=== PATIENT | female | born 1975 | race Caucasian/White ===

== ENCOUNTER 2019-07-12 08:07 | Emergency (ER) | payer BC, MEDICAID ==
[2019-07-12] MEDS ORDERED: Sodium Chloride 0.9% 10 ML Syringe FLUSH PRN (08:44)
[2019-07-12] MEDS ORDERED: Iopamidol 755 Mg/ML 100 ML Bottle IVPUSH ONE (08:45)
[2019-07-12] MEDS ORDERED: Sodium Chloride 0.9% 1,000 ML IV ONE (08:53)
--- NOTE | 2019-07-12 09:08 | EDM.PDOC ---
ED HPI GENERAL MEDICAL PROBLEM - General Chief Complaint: Cardiovascular Problem Stated Complaint: hx PE, coughing blood Time Seen by Provider: 07/12/19 08:10 Source of Information: Reports: Patient, RN Notes Reviewed History Limitations: Reports: No Limitations - History of Present Illness INITIAL COMMENTS - FREE TEXT/NARRATIVE: She presents to the ED complaining of possible PE. She was diagnosed with PE in [place] of this year. She is on Eliquis. She gives a two week history of increased acid reflux symptoms and epigastric abdominal pain. Last night had several episodes of vomiting, and this morning noted blood in the emesis. Watery brown diarrhea approximately every hour last night. Mild diffuse abdominal pain. She does complain of feeling short of breath, but no chest pain or tightness. No fever or chills. No dizziness or lightheadedness. No sore throat. She does report mild urinary frequency. No dysuria. Epigastric Pain Score (Numeric/FACES): 4 - Related Data Allergies Allergy/AdvReac Type Severity Reaction Status Date / Time Penicillins Allergy Rash Verified 07/12/19 08:09 Home Meds: Home Meds ARIPiprazole [Abilify] 5 mg PO DAILY 07/31/14 [History] Escitalopram [Lexapro] 1 tab PO DAILY 07/31/14 [History] Losartan/Hydrochlorothiazide [Losartan-HCTZ 50-12.5 MG] 1 tab PO DAILY 07/31/14 [History] Pantoprazole [Protonix] 40 mg PO BID 07/31/14 [History] traZODone 1 tab PO BEDTIME 07/31/14 [History] Albuterol [Ventolin HFA] 2 puff INH Q4H PRN 07/12/19 [History] Apixaban [Eliquis] 1 tab PO BID 07/12/19 [History] Ferrous Sulfate [Iron] 1 tab PO Q2D 07/12/19 [History] Levothyroxine 1 tab PO DAILY 07/12/19 [History] Ondansetron [Zofran ODT] 1 tab SL Q4H PRN 07/12/19 [History] Potassium Chloride [Klor-Con 10] 1 tab PO DAILY 07/12/19 [History] busPIRone [Buspar] 1 tab PO BID 07/12/19 [History] Past Medical History Cardiovascular History: Reports: Hypertension, Stents, Other (See Below) Other Cardiovascular History: Carotid stents in April 2019, Dx Thrombophilia, DVT , PE Respiratory History: Reports: PE Gastrointestinal History: Reports: GERD 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: , Other (See Below) 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: HELLP syndrome and toxiemia Psychiatric History: Reports: Anxiety, Depression Endocrine/Metabolic History: Reports: Hypothyroidism, Other (See Below) Other Endocrine/Metabolic History: Borderline T2DM Hematologic History: Reports: Anticoagulation Therapy, Bleeding Disorder, Other (See Below) Other Hematologic History: Hx Thrombophilia - Past Surgical History HEENT Surgical History: Reports: Tonsillectomy Cardiovascular Surgical History: Reports: Carotid Stents GI Surgical History: Reports: Hernia, Abdominal, Antonio Fundoplication, Other ( See Below) Other GI Surgeries/Procedures: Multiple abdominal hernia repairs, mesh removed Musculoskeletal Surgical History: Reports: Other (See Below) Other Musculoskeletal Surgeries/Procedures:: Femur fx, torn ACL Social & Family History - Tobacco Use Smoking Status *Q: Former Smoker Used Tobacco, but Quit: Yes Month/Year Tobacco Last Used: 0 - Caffeine Use Caffeine Use: Reports: Other Caffeine Use Comment: Occasional soda - Recreational Drug Use Recreational Drug Use: No ED ROS GENERAL - Review of Systems Review Of Systems: See Below Constitutional: Denies: Fever, Chills HEENT: Denies: Eye Pain Respiratory: Reports: Cough, Sputum (brown). Denies: Shortness of Breath, Hemoptysis Cardiovascular: Denies: Chest Pain, Lightheadedness Endocrine: Denies: Fatigue GI/Abdominal: Reports: Abdominal Pain, Diarrhea, Vomiting (dried blood in emesis ) : Reports: No Symptoms Musculoskeletal: Reports: No Symptoms Skin: Reports: No Symptoms Neurological: Reports: No Symptoms Psychiatric: Reports: No Symptoms Hematologic/Lymphatic: Reports: Other (anticoagulated) ED EXAM, GENERAL - Physical Exam Exam: See Below Exam Limited By: No Limitations General Appearance: Alert, WD/WN, No Apparent Distress Ear Exam: Bilateral Ear: Auricle Normal, Canal Normal, TM normal Nose: Normal Inspection Throat/Mouth: Normal Inspection Head: Atraumatic, Normocephalic Neck: Normal Inspection, Non-Tender Respiratory/Chest: Lungs Clear, Normal Breath Sounds, No Accessory Muscle Use, Chest Non-Tender. No: Respiratory Distress, Crackles, Rhonchi, Wheezing Cardiovascular: Normal Peripheral Pulses, Regular Rate, Rhythm, No Edema, No Murmur GI/Abdominal: Normal Bowel Sounds, Soft, No Distention, No Mass, Tender (Mild diffuse tenderness slightly worse in the epigastrum) Neurological: Alert, Oriented Psychiatric: Normal Affect, Normal Mood Skin Exam: Warm, Dry Lymphatic: No Adenopathy Course - Vital Signs Last Recorded V/S: Last Vital Signs Temp 36.6 C 07/12/19 08:10 Pulse 122 H 07/12/19 08:10 Resp 23 H 07/12/19 10:38 BP 123/76 07/12/19 10:38 Pulse Ox 100 07/12/19 10:38 - Orders/Labs/Meds Labs: Laboratory Tests 07/12/19 07/12/19 07/12/19 Range/Units 08:37 08:45 08:45 WBC 14.2 H (4.0-10.2) K/uL RBC 4.99 (3.77-5.09) M/uL Hgb 10.9 L (11.7-15.5) g/dL Hct 35.8 (34.0-46.0) % MCV 71.7 L (84.0-98.0) fL MCH 21.8 L (28.2-33.3) pg MCHC 30.4 L (31.7-36.0) g/dL RDW 18.6 H (11.2-14.1) % Plt Count 389 H (150-350) K/uL Neut % (Auto) 92.2 H (45.0-80.0) % Lymph % (Auto) 4.2 L (10.0-50.0) % [place] % (Auto) 3.4 (2.0-14.0) % Eos % (Auto) 0.1 (0.0-5.0) % Baso % (Auto) 0.1 (0.0-2.0) % Neut # (Auto) 13.08 H (1.40-7.00) K/uL Lymph # (Auto) 0.60 (0.50-3.50) K/uL [place] # (Auto) 0.48 (0.00-1.00) K/uL Eos # (Auto) 0.01 (0.00-0.50) K/uL Baso # (Auto) 0.01 (0.00-0.20) K/uL PT 11.0 (9.5-12.0) SEC INR 1.0 Sodium 137 (136-145) mmol/L Potassium 3.5 (3.5-5.1) mmol/L Chloride 101 (98-107) mmol/L Carbon Dioxide 22.6 (21.0-32.0) mmol/L BUN 16 (7-18) mg/dL Creatinine 1.10 (0.51-1.17) mg/dL Est Cr Clr Drug Dosing 59.82 mL/min Estimated GFR (MDRD) 53 mL/min Glucose 159 H (74-106) mg/dL Calcium 8.7 (8.5-10.1) mg/dL Total Bilirubin 0.5 (0.2-1.0) mg/dL AST 11 L (15-37) U/L ALT 19 (12-78) U/L Alkaline Phosphatase 88 (46-116) IU/L Total Protein 7.7 (6.4-8.2) g/dL Albumin 3.4 (3.4-5.0) g/dL Specimen Type Urine Color Urine Appearance Urine pH (5.0-9.0) Ur Specific [place] (1.005-1.030) Urine Protein (NEGATIVE) mg/dL Urine Glucose (UA) (NEGATIVE) mg/dL Urine Ketones (NEGATIVE) mg/dL Urine Occult Blood (NEGATIVE) Urine Nitrite (NEGATIVE) Urine Bilirubin (NEGATIVE) Urine Urobilinogen (0.2-1.0) E.U./dL Ur Leukocyte Esterase (NEGATIVE) Urine RBC /HPF Urine WBC /HPF Ur Epithelial Cells /LPF Urine Bacteria (NONE TO FEW) /HPF Urine Mucus (NEGATIVE) /LPF 07/12/19 Range/Units 09:10 WBC (4.0-10.2) K/uL RBC (3.77-5.09) M/uL Hgb (11.7-15.5) g/dL Hct (34.0-46.0) % MCV (84.0-98.0) fL MCH (28.2-33.3) pg MCHC (31.7-36.0) g/dL RDW (11.2-14.1) % Plt Count (150-350) K/uL Neut % (Auto) (45.0-80.0) % Lymph % (Auto) (10.0-50.0) % [place] % (Auto) (2.0-14.0) % Eos % (Auto) (0.0-5.0) % Baso % (Auto) (0.0-2.0) % Neut # (Auto) (1.40-7.00) K/uL Lymph # (Auto) (0.50-3.50) K/uL [place] # (Auto) (0.00-1.00) K/uL Eos # (Auto) (0.00-0.50) K/uL Baso # (Auto) (0.00-0.20) K/uL PT (9.5-12.0) SEC INR Sodium (136-145) mmol/L Potassium (3.5-5.1) mmol/L Chloride (98-107) mmol/L Carbon Dioxide (21.0-32.0) mmol/L BUN (7-18) mg/dL Creatinine (0.51-1.17) mg/dL Est Cr Clr Drug Dosing mL/min Estimated GFR (MDRD) mL/min Glucose (74-106) mg/dL Calcium (8.5-10.1) mg/dL Total Bilirubin (0.2-1.0) mg/dL AST (15-37) U/L ALT (12-78) U/L Alkaline Phosphatase (46-116) IU/L Total Protein (6.4-8.2) g/dL Albumin (3.4-5.0) g/dL Specimen Type Urinvoid Urine Color Yellow Urine Appearance Cloudy Urine pH 5.0 (5.0-9.0) Ur Specific [place] 1.025 (1.005-1.030) Urine Protein 30 H (NEGATIVE) mg/dL Urine Glucose (UA) Negative (NEGATIVE) mg/dL Urine Ketones Negative (NEGATIVE) mg/dL Urine Occult Blood Moderate H (NEGATIVE) Urine Nitrite Negative (NEGATIVE) Urine Bilirubin Small H (NEGATIVE) Urine Urobilinogen 0.2 (0.2-1.0) E.U./dL Ur Leukocyte Esterase Negative (NEGATIVE) Urine RBC 0-5 /HPF Urine WBC 5-10 H /HPF Ur Epithelial Cells Many H /LPF Urine Bacteria Many H (NONE TO FEW) /HPF Urine Mucus Occasional H (NEGATIVE) /LPF Meds: Medications Discontinued Medications Generic Name Dose Route Start Last Admin Trade Name Freq PRN Reason Stop Dose Admin Sodium Chloride 1,000 mls @ 999 mls/hr 07/12/19 08:53 07/12/19 09:47 Normal Saline IV 07/12/19 09:53 100 mls/hr .BOLUS ONE Infusion Iopamidol 100 ml 07/12/19 08:45 07/12/19 09:06 Isovue-370 (76%) IVPUSH 07/12/19 08:46 100 ml ONETIME ONE Administration Sodium Chloride 10 ml 07/12/19 08:44 Saline Flush FLUSH ASDIRECTED PRN Keep Vein Open - Radiology Interpretation Free Text/Narrative:: CT scan is negative for new PE per radiology. Departure - Departure Time of Disposition: 10:45 Disposition: Home, Self-Care 01 Condition: Good Clinical Impression: Gastroenteritis Instructions: Viral Gastroenteritis, Adult, [id number] Referrals: Ilene Forman PA-C [Primary Care Provider] - Forms: ED Department Discharge Care Plan Goals: Discussed findings and results. Push fluids and stay hydrated. Take your Zofran as needed. Resume your normal medications. Follow up as needed. - Problem List & Annotations (1) Gastroenteritis SNOMED Code(s): 90721713 Code(s): K52.9 - NONINFECTIVE GASTROENTERITIS AND COLITIS, UNSPECIFIED Status: Acute Onset Date: ~07/11/19 - Assessment/Plan Assessment:: Gastroenteritis Plan: Discussed findings and treatment options. Push fluids. Zofran as needed for nausea. Resume usual medications. Follow up with primary provider if not improving.
== END 2019-07-12 11:05 | disposition home or self-care (01) ==
LOC: LL.ED 08:07
DX: K52.9 Noninfective gastroenteritis and colitis, unspecified (principal); I10 Essential (primary) hypertension; K21.9 Gastro-esophageal reflux disease without esophagitis; F41.9 Anxiety disorder, unspecified; F32.9 Major depressive disorder, single episode, unspecified; E03.9 Hypothyroidism, unspecified; Z86.711 Personal history of pulmonary embolism; Z79.01 Long term (current) use of anticoagulants; Z87.891 Personal history of nicotine dependence; Z88.0 Allergy status to penicillin; Z79.899 Other long term (current) drug therapy
CPT/HCPCS: 36415; 71275; 80053; 81001; 85025; 85610; 96360; 96361; 99285; J7030; Q9967

== ENCOUNTER 2019-08-20 22:39 | Emergency (ER) | payer MEDICAID ==
[2019-08-20] MEDS: Ondansetron 4 MG/2 ML SDV IVPUSH SCH (23:19)
[2019-08-20] MEDS: Sodium Chloride 0.9% 10 ML Syringe FLUSH PRN (23:28)
[2019-08-20] MEDS: Sodium Chloride 0.9% 1,000 ML IV SCH (23:38)
--- NOTE | 2019-08-21 00:30 | EDM.PDOC ---
ED HPI GENERAL MEDICAL PROBLEM - General Chief Complaint: General Stated Complaint: Dizziness, Syncopal Time Seen by Provider: 08/20/19 22:50 - History of Present Illness INITIAL COMMENTS - FREE TEXT/NARRATIVE: Patient is a 42-year-old who was at a friend's house she got up and felt dizzy and fell forward hitting her head patient denies loss of consciousness but friends think she did at this time patient brought in for evaluation by her friend she was alert and oriented she did have 3 drinks earlier otherwise have been doing well she has history of thrombophilia and has been on blood thinners religiously recently she has weaned off oxygen but it was noted that her saturations were clear a d-dimer was negative chest x-ray was also negative. CT of the head revealed no acute process. Onset: Today, Sudden Duration: Minutes:, Improving, Resolved Prior to Arrival Location: Reports: Head Severity: Mild Improves with: Reports: Rest Worsens with: Reports: None Context: Reports: Exercise Associated Symptoms: Reports: No Other Symptoms Headache Pain Score (Numeric/FACES): 10 - Related Data Allergies Allergy/AdvReac Type Severity Reaction Status Date / Time Penicillins Allergy Rash Verified 08/11/19 09:58 Home Meds: Home Meds ARIPiprazole [Abilify] 10 mg PO DAILY 07/31/14 [History] Escitalopram [Lexapro] 30 tab PO DAILY 07/31/14 [History] Losartan/Hydrochlorothiazide [Losartan-HCTZ 50-12.5 MG] 1 tab PO DAILY 07/31/14 [History] Pantoprazole [Protonix] 40 mg PO BID 07/31/14 [History] traZODone 1 tab PO BEDTIME 07/31/14 [History] Albuterol [Ventolin HFA] 2 puff INH Q4H PRN 07/12/19 [History] Apixaban [Eliquis] 1 tab PO BID 07/12/19 [History] Ferrous Sulfate [Iron] 1 tab PO Q2D 07/12/19 [History] Levothyroxine 1 tab PO DAILY 07/12/19 [History] Ondansetron [Zofran ODT] 1 tab SL Q4H PRN 07/12/19 [History] Potassium Chloride [Klor-Con 10] 1 tab PO DAILY 07/12/19 [History] busPIRone [Buspar] 1 tab PO BID 07/12/19 [History] Past Medical History Cardiovascular History: Reports: Hypertension, Stents, Other (See Below) Other Cardiovascular History: Carotid stents in April 2019, Dx Thrombophilia, DVT , PE Respiratory History: Reports: PE Gastrointestinal History: Reports: GERD 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: , 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 (See Below) 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: HELLP syndrome and toxiemia Psychiatric History: Reports: Anxiety, Depression Endocrine/Metabolic History: Reports: Hypothyroidism, Other (See Below) Other Endocrine/Metabolic History: Borderline T2DM Hematologic History: Reports: Anticoagulation Therapy, Bleeding Disorder, Other (See Below) Other Hematologic History: Hx Thrombophilia - Past Surgical History HEENT Surgical History: Reports: Tonsillectomy Cardiovascular Surgical History: Reports: Carotid Stents GI Surgical History: Reports: Hernia, Abdominal, Antonio Fundoplication, Other ( See Below) Other GI Surgeries/Procedures: Multiple abdominal hernia repairs, mesh removed Musculoskeletal Surgical History: Reports: Other (See Below) Other Musculoskeletal Surgeries/Procedures:: Femur fx, torn ACL Social & Family History - Tobacco Use Smoking Status *Q: Never Smoker Second Hand Smoke Exposure: No - Caffeine Use Caffeine Use: Reports: None Caffeine Use Comment: Occasional soda - Alcohol Use Days Per Week of Alcohol Use: 1 Number of Drinks Per Day: 3 Total Drinks Per Week: 3 - Recreational Drug Use Recreational Drug Use: No ED ROS GENERAL - Review of Systems Review Of Systems: See Below Constitutional: Reports: No Symptoms HEENT: Reports: No Symptoms Respiratory: Reports: Shortness of Breath Cardiovascular: Reports: Lightheadedness Endocrine: Reports: No Symptoms GI/Abdominal: Reports: No Symptoms : Reports: No Symptoms Musculoskeletal: Reports: No Symptoms Skin: Reports: No Symptoms Neurological: Reports: Headache, Syncope Psychiatric: Reports: No Symptoms Hematologic/Lymphatic: Reports: No Symptoms Immunologic: Reports: No Symptoms ED EXAM, GENERAL - Physical Exam Exam: See Below Exam Limited By: No Limitations General Appearance: Alert, WD/WN, No Apparent Distress Ears: Normal External Exam, Normal Canal, Hearing Grossly Normal, Normal TMs Ear Exam: Bilateral Ear: Auricle Normal, Canal Normal, TM normal Nose: Normal Inspection, Normal Mucosa, No Blood Throat/Mouth: Normal Inspection, Normal Lips, Normal Teeth, Normal Gums, Normal Oropharynx, Normal Voice, No Airway Compromise Head: Atraumatic, Normocephalic Neck: Normal Inspection, Supple, Non-Tender, Full Range of Motion Respiratory/Chest: No Respiratory Distress, Lungs Clear, Normal Breath Sounds Cardiovascular: Normal Peripheral Pulses, Regular Rate, Rhythm, No Edema, No Gallop, No JVD, No Murmur, No Rub GI/Abdominal: Normal Bowel Sounds, Soft, Non-Tender, No Organomegaly, No Distention, No Abnormal Bruit, No Mass (Female) Exam: Deferred Rectal (Female) Exam: Deferred Back Exam: Normal Inspection, Full Range of Motion, NT Extremities: Joint Swelling, Limited Range of Motion (Left fifth finger) Neurological: Alert, Oriented, CN II-XII Intact, Normal Cognition, Normal Gait, Normal Reflexes, No Motor/Sensory Deficits Psychiatric: Normal Affect, Normal Mood Skin Exam: Warm, Dry, Intact, Normal Color, No Rash Lymphatic: No Adenopathy Course - Vital Signs Last Recorded V/S: Last Vital Signs Temp 97.7 F 08/20/19 23:09 Pulse 96 08/20/19 23:09 Resp 18 08/20/19 23:09 BP 148/78 H 08/20/19 23:09 Pulse Ox 92 L 08/20/19 23:09 - Orders/Labs/Meds Orders: Active Orders 24 hr Category Date Time Status EKG Documentation Completion [RC] ASDIRECTED Care 08/20/19 23:16 Ordered Oxygen Therapy [RC] PRN Care 08/20/19 23:37 Ordered Chest 2V [CR] Stat Exams 08/20/19 23:32 Ordered Fingers Fifth Digit Lt F4 [CR] Stat Exams 08/20/19 23:25 Ordered Head wo Cont [CT] Stat Exams 08/20/19 23:10 Ordered Ondansetron [Zofran] Med 08/20/19 23:15 Ordered 4 mg IVPUSH Q8H Sodium Chloride 0.9% [Normal Saline] 1,000 ml Med 08/20/19 23:30 Ordered IV ASDIRECTED Sodium Chloride 0.9% [Saline Flush] Med 08/20/19 23:19 Active 10 ml FLUSH ASDIRECTED PRN EKG 12 Lead [EK] Stat Ther 08/20/19 23:15 Ordered Medication Orders Sodium Chloride (Normal Saline) 1,000 mls @ 250 mls/hr IV ASDIRECTED MARCELA Last Admin: 08/20/19 23:38 Dose: 250 mls/hr Ondansetron HCl (Zofran) 4 mg IVPUSH Q8H MARCELA Last Admin: 08/20/19 23:19 Dose: 4 mg Sodium Chloride (Saline Flush) 10 ml FLUSH ASDIRECTED PRN PRN Reason: vein open Last Admin: 08/20/19 23:28 Dose: 10 ml Labs: Laboratory Tests 08/20/19 08/20/19 08/20/19 Range/Units 23:15 23:15 23:15 WBC 11.8 H (4.0-10.2) K/uL RBC 4.88 (3.77-5.09) M/uL Hgb 11.2 L (11.7-15.5) g/dL Hct 37.7 (34.0-46.0) % MCV 77.3 L D (84.0-98.0) fL MCH 23.0 L (28.2-33.3) pg MCHC 29.7 L (31.7-36.0) g/dL RDW 23.1 H (11.2-14.1) % Plt Count 311 D (150-350) K/uL Neut % (Auto) 58.9 (45.0-80.0) % Lymph % (Auto) 32.3 (10.0-50.0) % [place] % (Auto) 7.3 (2.0-14.0) % Eos % (Auto) 1.3 (0.0-5.0) % Baso % (Auto) 0.2 (0.0-2.0) % Neut # (Auto) 6.97 (1.40-7.00) K/uL Lymph # (Auto) 3.81 H (0.50-3.50) K/uL [place] # (Auto) 0.86 (0.00-1.00) K/uL Eos # (Auto) 0.15 (0.00-0.50) K/uL Baso # (Auto) 0.02 (0.00-0.20) K/uL D-Dimer, Quantitative < 100 (0-400) ng/mL Sodium 143 (136-145) mmol/L Potassium 3.7 (3.5-5.1) mmol/L Chloride 106 (98-107) mmol/L Carbon Dioxide 23.1 (21.0-32.0) mmol/L BUN 10 (7-18) mg/dL Creatinine 1.00 (0.51-1.17) mg/dL Est Cr Clr Drug Dosing 70.91 mL/min Estimated GFR (MDRD) 60 mL/min Glucose 156 H (74-106) mg/dL Calcium 8.7 (8.5-10.1) mg/dL Total Bilirubin 0.2 (0.2-1.0) mg/dL AST 18 (15-37) U/L ALT 28 (12-78) U/L Alkaline Phosphatase 83 (46-116) IU/L Total Protein 7.3 (6.4-8.2) g/dL Albumin 3.5 (3.4-5.0) g/dL Ethyl Alcohol 0.012 (0.000-0.080) g/dL Meds: Medications Generic Name Dose Route Start Last Admin Trade Name Freq PRN Reason Stop Dose Admin Sodium Chloride 1,000 mls @ 250 mls/hr 08/20/19 23:30 08/20/19 23:38 Normal Saline IV 250 mls/hr ASDIRECTED MARCELA Administration Ondansetron HCl 4 mg 08/20/19 23:15 08/20/19 23:19 Zofran IVPUSH 4 mg Q8H MARCELA Administration Sodium Chloride 10 ml 08/20/19 23:19 08/20/19 23:28 Saline Flush FLUSH 10 ml ASDIRECTED PRN Administration vein open Departure - Departure Time of Disposition: 00:33 Disposition: Home, Self-Care 01 Condition: Fair Clinical Impression: Syncope Qualifiers: Syncope type: vasovagal syncope Qualified Code(s): R55 - Syncope and collapse - Discharge Information *PRESCRIPTION DRUG MONITORING PROGRAM REVIEWED*: No *COPY OF PRESCRIPTION DRUG MONITORING REPORT IN PATIENT TREY: No Referrals: Ilene Forman PA-C [Primary Care Provider] - Care Plan Goals: Continue use of oxygen at home during the night continue medications especially at blood thinners she is amish about taking these and to continue. - My Orders Last 24 Hours: My Active Orders 08/20/19 23:10 Head wo Cont [CT] Stat 08/20/19 23:15 Ondansetron [Zofran] 4 mg IVPUSH Q8H EKG 12 Lead [EK] Stat 08/20/19 23:16 EKG Documentation Completion [RC] ASDIRECTED 08/20/19 23:19 Sodium Chloride 0.9% [Saline Flush] 10 ml FLUSH ASDIRECTED PRN 08/20/19 23:25 Fingers Fifth Digit Lt F4 [CR] Stat 08/20/19 23:30 Sodium Chloride 0.9% [Normal Saline] 1,000 ml IV ASDIRECTED 08/20/19 23:32 Chest 2V [CR] Stat 08/20/19 23:37 Oxygen Therapy [RC] PRN - Assessment/Plan Last 24 Hours: My Active Orders 08/20/19 23:10 Head wo Cont [CT] Stat 08/20/19 23:15 Ondansetron [Zofran] 4 mg IVPUSH Q8H EKG 12 Lead [EK] Stat 08/20/19 23:16 EKG Documentation Completion [RC] ASDIRECTED 08/20/19 23:19 Sodium Chloride 0.9% [Saline Flush] 10 ml FLUSH ASDIRECTED PRN 08/20/19 23:25 Fingers Fifth Digit Lt F4 [CR] Stat 08/20/19 23:30 Sodium Chloride 0.9% [Normal Saline] 1,000 ml IV ASDIRECTED 08/20/19 23:32 Chest 2V [CR] Stat 08/20/19 23:37 Oxygen Therapy [RC] PRN
== END 2019-08-21 01:00 | disposition home or self-care (01) ==
LOC: LL.ED 22:39
DX: R55 Syncope and collapse (principal); I10 Essential (primary) hypertension; K21.9 Gastro-esophageal reflux disease without esophagitis; F41.9 Anxiety disorder, unspecified; F32.9 Major depressive disorder, single episode, unspecified; Z86.718 Personal history of other venous thrombosis and embolism; Z86.711 Personal history of pulmonary embolism; Z88.0 Allergy status to penicillin; Z79.01 Long term (current) use of anticoagulants; Z79.899 Other long term (current) drug therapy
CPT/HCPCS: 36415; 70450; 71046; 73140; 80053; 80320; 85025; 85379; 93005; 94761; 96361; 96374; 99285; J2405; J7030; G0480

== ENCOUNTER 2019-10-28 14:46 | Emergency (ER) | payer MEDICAID ==
--- NOTE | 2019-10-28 14:49 | EDM.PDOC ---
ED HPI GENERAL MEDICAL PROBLEM - General Chief Complaint: General Stated Complaint: coughing up blood Time Seen by Provider: 10/28/19 14:46 Source of Information: Reports: Patient, Family (Mother), Old Records ([facility] EMR. No paper hospital chart available.), Other ( [facility]) History Limitations: Reports: No Limitations - History of Present Illness INITIAL COMMENTS - FREE TEXT/NARRATIVE: Patient was brought into the emergency room via private automobile by her mother for evaluation of sudden onset normal amount of "spitting up" of bright red blood from her abdomen with no abdominal pain prior to arrival. Note that she is currently both on ASA and Eliquis, however denies any other NSAID use. She normally has dark stool secondary to her iron supplementation. Patient does feel somewhat dizzy with some possible tachycardia and nausea. however no emesis , known exposure to infection, food poisoning, etc. The patient denies any chest pain/pressure, orthostasis, orthopnea, diaphoresis, paresthesias, recent decreased exercise tolerance, or any other anginal-type symptoms. No recent history of abdominal pain, heartburn, diarrhea, melena, gross hematochezia, or any food intolerance, including fatty foods, etc.. The patient also denies any recent fever, cough, wheezing, hemoptysis, dyspnea, etc., i.e., she thinks that is coming from her GI track or throat rather than her lungs. Onset: Today, Sudden Onset Date: 10/28/19 Onset Time: 14:15 Location: Reports: Other (No pain) Improves with: Reports: None Worsens with: Reports: None Context: Reports: Other (As above). Denies: Sick Contact, Trauma Associated Symptoms: Reports: Nausea/Vomiting (No emesis). Denies: Confusion, Chest Pain, Cough, Diaphoresis, Fever/Chills, Headaches, Loss of Appetite, Malaise, Shortness of Breath, Syncope, Weakness Treatments ROOM MAID: Reports: Other (see below) (None) - Related Data Allergies Allergy/AdvReac Type Severity Reaction Status Date / Time Penicillins Allergy Rash Verified 08/11/19 09:58 Home Meds: Home Meds ARIPiprazole [Abilify] 10 mg PO DAILY 07/31/14 [History] Escitalopram [Lexapro] 30 mg PO DAILY 07/31/14 [History] Losartan/Hydrochlorothiazide [Losartan-HCTZ 50-12.5 MG] 1 tab PO DAILY 07/31/14 [History] Pantoprazole [ProTONIX Granules] 40 mg PO DAILY 07/31/14 [History] traZODone 50 mg PO BEDTIME 07/31/14 [History] Albuterol [Ventolin HFA] 2 puff INH Q4H PRN 07/12/19 [History] Apixaban [Eliquis] 1 tab PO BID 07/12/19 [History] Ferrous Sulfate [Iron] 1 tab PO Q2D 07/12/19 [History] Levothyroxine 1 tab PO DAILY 07/12/19 [History] Ondansetron [Zofran ODT] 1 tab SL Q4H PRN 07/12/19 [History] Potassium Chloride [Klor-Con 10] 1 tab PO DAILY 07/12/19 [History] busPIRone [Buspar] 1 tab PO BID 07/12/19 [History] Past Medical History HEENT History: Reports: Allergic Rhinitis, Impaired Vision. Denies: Cataract, Glaucoma, Hard of Hearing, Macular Degeneration, Otitis Media, Retinal Detachment, Sinusitis Other HEENT History: Patient wears soft contact lenses. Cardiovascular History: Reports: Blood Clots/VTE/DVT, Heart Murmur, Hypertension , Pulmonary Hypertension, Syncope, Other (See Below). Denies: Afib, Arrhythmia , CAD, Cardiomyopathy, Heart Failure, High Cholesterol, PA, PVD Other Cardiovascular History: Pulmonary hypertension secondary to large bilateral PEs April 2019 requiring interventional localized thrombolytics as below. Initial large thrombus of the right superficial saphenous vein on 03/31/18 with subsequent similar lesion in the left leg on 05/14/19 resulting in lateral PEs. Syncopal episode of unknown etiology on 08/20/19 with no subsequent workup. Respiratory History: Reports: Asthma, Bronchitis, Recurrent, Intubation, Previous, PE, Other (See Below). Denies: COPD, Intubation, Difficult, Pneumonia , Recurrent, Pneumothorax, Sleep Apnea, TB Other Respiratory History: Large bilateral PEs as above. Gastrointestinal History: Reports: Cholelithiasis, Chronic Diarrhea, GERD, Hiatal Hernia. Denies: Bowel Obstruction, Celiac Disease, Chronic Constipation , Fecal Incontinence, Gastritis, GI Bleed, Hepatitis, Inflammatory Bowel Disease , Irritable Bowel Syndrome, Jaundice, Pancreatitis Genitourinary History: Reports: UTI, Recurrent. Denies: Acute Renal Failure, Chronic Renal Insuffiency, Renal Calculus, Retention, Urinary, STD, Urinary Incontinence RESTAURANT LINE SERVER History: Reports: Polycystic Ovaries, , Other (See Below). Denies: Dysfunctional Uterine Bleeding, Endometriosis, Spontaneous : 2 Para: 2 Other RESTAURANT LINE SERVER History: Normal LMP one week ago. HELLP syndrome and toxiemia with premature delivery by at 28 weeks gestation in second . Otherwise first was full-term by normal spontaneous delivery without complications during delivery or . Musculoskeletal History: Reports: Arthritis, Back Pain, Chronic, Fracture, Neck Pain, Chronic, Osteoarthritis, Other (See Below). Denies: Amputation, Gout, RA , SLE Other Musculoskeletal History: Left femoral fracture in 2018. Multiple ligamental tears including ACL tear in the right knee with surgeries as below. Neurological History: Reports: Headaches, Chronic, Migraines, Other (See Below) . Denies: Cerebral Aneurysms, CVA, MS, Neuropathy, Peripheral, Parkinson's, Seizure, TIA, Vertigo Other Neuro History: Previous migraine headaches currently not problematic. Psychiatric History: Reports: Addiction, Anxiety, Depression, Psych Hospitalization(s), PTSD, Suicidal Ideation, Other (See Below). 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 Endocrine/Metabolic History: Reports: Diabetes, Type II, Hypothyroidism, Other ( See Below). Denies: Diabetes, Gestational, Diabetes, Type I, Diabetes Mellitus , Type 3c, IDDM Other Endocrine/Metabolic History: Prediabetes/borderline AODM. Hematologic History: Reports: Anemia, Anticoagulation Therapy, Bleeding Disorder , Blood Transfusion(s), Other (See Below) Other Hematologic History: Multiple previous blood transfusions from previous abdominal surgeries. Iron deficiency anemia with chronic fatigue. Hx Thrombophilia with clotting disorder. Immunologic History: Reports: None. Denies: AIDS, HIV Oncologic (Cancer) History: Reports: None. Denies: Basal Cell Carcinoma, Breast , Cervix, Hodgkin's Lymphoma, Leukemia, Lymphoma, Malignant Melanoma, Non- Hodgkin's Lymphoma, Ovarian, Squamous Cell Carcinoma, Uterine Dermatologic History: Reports: Other (See Below). Denies: Eczema, Psoriasis Other Dermatologic History: Acne vulgaris. - Infectious Disease History Infectious Disease History: Reports: Chicken Pox, Mononucleosis (At age 16), Pertussis (Whooping Cough), Shingles (Left leg in about 2009.). Denies: C- Difficile, Helicobacter Pylori, Measles, Meningitis, MRSA, Mumps, Rheumatic Fever, Rubella, Scarlet Fever, TB, VRE - Past Surgical History Head Surgeries/Procedures: Reports: None HEENT Surgical History: Reports: Adenoidectomy, Oral Surgery, Tonsillectomy, Other (See Below). Denies: Cataract Surgery, Eye Surgery, Laser Surgery, LASIK , Myringotomy w Tube(s), Naso-Sinus Surgery Other HEENT Surgeries/Procedures: Tonsillectomy and adenoidectomy at age 14. Multiple teeth extractions. Cardiovascular Surgical History: Reports: None. Denies: Varicose Respiratory Surgical History: Reports: Other (See Below). Denies: Thoracentesis Other Respiratory Surgeries/Procedures: Intra-pulmonary PE thrombolysis bilaterally on 05/14/19. GI Surgical History: Reports: Cholecystectomy, EGD, Hernia, Abdominal, Hernia Repair/Other, Antonio Fundoplication, Other (See Below). Denies: Appendectomy, Colonoscopy, Hernia, Inguinal, Polypectomy Other GI Surgeries/Procedures: Multiple abdominal hernia repairs last on . Colonoscopy in about 2014. Multiple previous EGDs with last EGD with biopsy on 09/21/17. Antonio fundoplication with subsequent complication of mesh invasion into the lower esophagus requiring mesh removal in 2010. Laparoscopic cholecystectomy in about 2007. Female Surgical History: Reports: Section (As above). Denies: Breast Biopsy, D&C, Oophorectomy, Salpingo-Oophorectomy, Tubal Ligation Endocrine Surgical History: Reports: None. Denies: Thyroid Biopsy Neurological Surgical History: Reports: None. Denies: C-Spine, Discectomy, Intracranial, Laminectomy, Lumbar Spine, Spinal Fusion, Thoracic Spine, Vertebroplasty Musculoskeletal Surgical History: Reports: Arthroscopic Knee, Arthroscopic Procedure, Other (See Below). Denies: Carpal Tunnel, Ganglion Cyst, Joint Replacement, ORIF, Shoulder Surgery Other Musculoskeletal Surgeries/Procedures:: Right knee arthroscopic surgeries in 1990 and 1991. Oncologic Surgical History: Reports: None Dermatological Surgical History: Reports: None - Past Imaging History Past Imaging History: Reports: Angiography (Interventional radiology angiogram of the chest/lungs on 05/17/19, 05/16/19, and 05/15/19.), Cardiac Echo (Trans- esophageal echocardiogram on 05/18/19 with ejection fraction of 65% with previous transthoracic echocardiograms on 05/14/19 and 07/13/15.), CAT Scan (CT of the head on 08/21/19. CTA of the chest on 07/12/19 and 05/14/19. CT of the chest on 05/19/19.), Mammogram (Last on 08/18/19.), MRI (Right knee on 10/21/18.) , Upper GI X-Ray/Series (05/11/17), Venous Doppler (Venous Doppler studies of the legs bilaterally and 05/14/19 positive for left thrombus as above with previous negative venous Doppler study of the left leg on 06/09/18 however positive right leg venous Doppler study on 03/31/18 with results as above.) Social & Family History - Tobacco Use Smoking Status *Q: Former Smoker Tobacco Use Within Last Twelve Months: No Years of Tobacco use: 13 Packs/Tins Daily: 2 Packs/Tins Daily Comment: Smoked between ages 13 and 26. Used Tobacco, but Quit: Yes Smoking Cessation Information Provided To Patient: No Second Hand Smoke Exposure: No Second Hand Smoke Education Provided: No - Caffeine Use Caffeine Use: Reports: Soda (3 sodas per day). Denies: Coffee, Energy Drinks, Tea - Alcohol Use Alcohol Use History: Yes Days Per Week of Alcohol Use: 0 Number of Drinks Per Day: 1 Number of Drinks Per Day Comment: Usually for holidays. No previous DWIs, problems with alcohol abuse, etc. Total Drinks Per Week: 0 Date of Last Drink: 10/20/19 Alcohol Use in Last Twelve Months: Yes Alcohol Use Frequency: Rarely - Recreational Drug Use Recreational Drug Type: Reports: Amphetamines (Speed) (Experimental in 2009), Marijuana/Hashish (Experimental as a teenager), Methamphetamine (As above). Denies: Cocaine, Heroin, Inhalants (Glues, Solvents, Aerosols), LSD (Acid), Morphine, Oxycodone - Living Situation & Occupation Living situation: Reports: (2014), Alone Occupation: Unemployed (Multiple previous jobs) ED ROS GENERAL - Review of Systems Review Of Systems: Comprehensive ROS is negative, except as noted in HPI. ED EXAM, GENERAL - Physical Exam Exam: See Below Exam Limited By: No Limitations General Appearance: Alert, WD/WN, No Apparent Distress, Anxious (Mild to moderate) Eye Exam: Left Eye: EOMI, Normal Inspection (Patient is wearing soft contact lenses), Bilateral Eye: PERRL Ears: Normal External Exam, Normal Canal, Hearing Grossly Normal, Normal TMs Nose: Normal Inspection, Normal Mucosa, No Blood Throat/Mouth: Normal Lips, Normal Gums, Normal Oropharynx, Normal Voice, No Airway Compromise. No: Normal Teeth (Multiple broken teeth including caries into the gumline especially in the right lower dental region with no drainage or acute abscess), Dysphagia, Perioral Cyanosis Head: Atraumatic, Normocephalic. No: Facial Swelling, Facial Tenderness, Sinus Tenderness Neck: Normal Inspection, Supple, Non-Tender, Full Range of Motion. No: Lymphadenopathy (L), Lymphadenopathy (R), Thyromegaly Respiratory/Chest: No Respiratory Distress, Lungs Clear, Normal Breath Sounds, No Accessory Muscle Use, Chest Non-Tender. No: Pleural Rub, Retractions Cardiovascular: Normal Peripheral Pulses, Regular Rate, Rhythm, No Gallop, No JVD, No Murmur, No Rub. No: No Edema (Dependent edema as below), Gallop/S3, Gallop/S4, Friction Rub Peripheral Pulses: 2+: Radial (L), Radial (R), Dorsalis Pedis (L), Dorsalis Pedis (R) GI/Abdominal: Normal Bowel Sounds, Soft, No Organomegaly, No Distention, No Abnormal Bruit, No Mass, Tender (Mild 5/10 palpation pain in the left lower quadrant), Hernia (Stable by history 4 cm in length midline periumbilical/ inferior nonincarcerated hernia; multiple abdominal incisions), Other (obese). No: Guarding, Rigid, Rebound (Female) Exam: Deferred Rectal (Female) Exam: Normal Exam, Normal Rectal Tone, Heme - Stool, Hemorrhoids. No: Tenderness (No Kulwant space tenderness) Back Exam: Normal Inspection, Full Range of Motion, Other. No: CVA Tenderness ( L), CVA Tenderness (R) Extremities: Normal Range of Motion, Non-Tender, Normal Capillary Refill, Pedal Edema (+1 bilateral pedal/pretibial edema). No: Naomy's Sign Neurological: Alert, Oriented, CN II-XII Intact, Normal Cognition, Normal Gait, Normal Reflexes, No Motor/Sensory Deficits Psychiatric: Anxious (Mild to moderate), Depressed Mood (Borderline) Skin Exam: Warm, Dry, Intact, Normal Color, Tattoo(s), Other (Mild facial acne vulgaris). No: Diaphoretic, Ecchymosis, Pallor, Petechiae, Wound/Incision Lymphatic: No Adenopathy Course - Vital Signs Last Recorded V/S: Last Vital Signs Temp 37.1 C 10/28/19 15:00 Pulse 87 10/28/19 15:00 Resp 16 10/28/19 15:00 BP 118/76 10/28/19 15:00 Pulse Ox 98 10/28/19 15:00 Vital Signs - 24 hr 10/28/19 15:00 Temperature [ 37.1 C Oral] Pulse, 87 Peripheral [ Right Pulse Oximetry] Respiratory 16 Rate Blood Pressure 118/76 [Right Upper Arm] O2 Sat by Pulse 98 Oximetry - Orders/Labs/Meds Orders: Active Orders 24 hr Category Date Time Status Cardiac Monitoring [RC] . DIRECTED Care 10/28/19 14:53 Active Peripheral IV Care [RC] . DIRECTED Care 10/28/19 14:50 Active Nothing Per Oral Diet [DIET] Diet 10/28/19 Breakfast Active Abdomen Series w Chest 1V [CR] Stat Exams 10/28/19 14:49 Taken Sodium Chloride 0.9% [Saline Flush] Med 10/28/19 14:49 Active 10 ml FLUSH ASDIRECTED PRN Obtain Past Medical Record [OM.PC] Urgent Oth 10/28/19 14:49 Active Peripheral IV Insertion Adult [OM.PC] Stat Oth 10/28/19 14:49 Ordered Resuscitation Status Stat Resus Stat 10/28/19 14:49 Ordered Medication Orders Sodium Chloride (Saline Flush) 10 ml FLUSH ASDIRECTED PRN PRN Reason: Keep Vein Open Last Admin: 10/28/19 15:17 Dose: 10 ml Labs: Laboratory Tests 10/28/19 10/28/19 10/28/19 Range/Units 14:54 14:54 14:54 WBC 9.5 (4.0-10.2) K/uL RBC 4.87 (3.77-5.09) M/uL Hgb 12.6 (11.7-15.5) g/dL Hct 40.7 (34.0-46.0) % MCV 83.6 L D (84.0-98.0) fL MCH 25.9 L (28.2-33.3) pg MCHC 31.0 L (31.7-36.0) g/dL RDW 17.6 H (11.2-14.1) % Plt Count 304 (150-350) K/uL Neut % (Auto) 62.9 (45.0-80.0) % Lymph % (Auto) 28.9 (10.0-50.0) % [place] % (Auto) 6.1 (2.0-14.0) % Eos % (Auto) 1.9 (0.0-5.0) % Baso % (Auto) 0.2 (0.0-2.0) % Neut # (Auto) 5.97 (1.40-7.00) K/uL Lymph # (Auto) 2.74 (0.50-3.50) K/uL [place] # (Auto) 0.58 (0.00-1.00) K/uL Eos # (Auto) 0.18 (0.00-0.50) K/uL Baso # (Auto) 0.02 (0.00-0.20) K/uL PT 10.7 (9.5-12.0) SEC INR 1.0 APTT 29.9 (21.0-31.3) SEC Sodium 142 (136-145) mmol/L Potassium 3.3 L (3.5-5.1) mmol/L Chloride 107 (98-107) mmol/L Carbon Dioxide 27.3 (21.0-32.0) mmol/L BUN 13 (7-18) mg/dL Creatinine 0.98 (0.51-1.17) mg/dL Est Cr Clr Drug Dosing TNP Estimated GFR (MDRD) > 60 mL/min Glucose 124 H (74-106) mg/dL Lactic Acid (0.4-2.0) mmol/L Uric Acid 7.0 (2.6-7.2) mg/dL Calcium 8.6 (8.5-10.1) mg/dL Magnesium 1.7 L (1.8-2.4) mg/dL Total Bilirubin 0.2 (0.2-1.0) mg/dL AST 13 L (15-37) U/L ALT 21 (12-78) U/L Alkaline Phosphatase 85 (46-116) IU/L Total Protein 7.1 (6.4-8.2) g/dL Albumin 3.3 L (3.4-5.0) g/dL Amylase 49 (25-115) U/L Lipase 111 (73-393) U/L HCG, Qual (NEGATIVE) 10/28/19 10/28/19 Range/Units 14:54 14:54 WBC (4.0-10.2) K/uL RBC (3.77-5.09) M/uL Hgb (11.7-15.5) g/dL Hct (34.0-46.0) % MCV (84.0-98.0) fL MCH (28.2-33.3) pg MCHC (31.7-36.0) g/dL RDW (11.2-14.1) % Plt Count (150-350) K/uL Neut % (Auto) (45.0-80.0) % Lymph % (Auto) (10.0-50.0) % [place] % (Auto) (2.0-14.0) % Eos % (Auto) (0.0-5.0) % Baso % (Auto) (0.0-2.0) % Neut # (Auto) (1.40-7.00) K/uL Lymph # (Auto) (0.50-3.50) K/uL [place] # (Auto) (0.00-1.00) K/uL Eos # (Auto) (0.00-0.50) K/uL Baso # (Auto) (0.00-0.20) K/uL PT (9.5-12.0) SEC INR APTT (21.0-31.3) SEC Sodium (136-145) mmol/L Potassium (3.5-5.1) mmol/L Chloride (98-107) mmol/L Carbon Dioxide (21.0-32.0) mmol/L BUN (7-18) mg/dL Creatinine (0.51-1.17) mg/dL Est Cr Clr Drug Dosing Estimated GFR (MDRD) mL/min Glucose (74-106) mg/dL Lactic Acid 1.5 (0.4-2.0) mmol/L Uric Acid (2.6-7.2) mg/dL Calcium (8.5-10.1) mg/dL Magnesium (1.8-2.4) mg/dL Total Bilirubin (0.2-1.0) mg/dL AST (15-37) U/L ALT (12-78) U/L Alkaline Phosphatase (46-116) IU/L Total Protein (6.4-8.2) g/dL Albumin (3.4-5.0) g/dL Amylase (25-115) U/L Lipase (73-393) U/L HCG, Qual Negative (NEGATIVE) Microbiology 10/28/19 16:20 Stool Occult Blood (MIREYA) - Final Stool / Feces Hemoccult negative Meds: Medications Generic Name Dose Route Start Last Admin Trade Name Freq PRN Reason Stop Dose Admin Sodium Chloride 10 ml 10/28/19 14:49 10/28/19 15:17 Saline Flush FLUSH 10 ml ASDIRECTED PRN Administration Keep Vein Open Discontinued Medications Generic Name Dose Route Start Last Admin Trade Name Freq PRN Reason Stop Dose Admin Famotidine 40 mg 10/28/19 14:49 10/28/19 15:16 Pepcid IVPUSH 10/28/19 14:50 40 mg ONETIME ONE Administration Lactated Ringer's 1,000 mls @ 999 mls/hr 10/28/19 14:49 10/28/19 15:17 Ringers, Lactated IV 10/28/19 15:49 999 mls/hr .BOLUS ONE Administration Ondansetron HCl 4 mg 10/28/19 14:49 10/28/19 15:16 Zofran IVPUSH 10/28/19 14:50 4 mg ONETIME ONE Administration Pantoprazole Sodium 40 mg 10/28/19 14:49 10/28/19 15:17 Protonix Iv IVPUSH 10/28/19 14:50 40 mg ONETIME ONE Administration - Radiology Interpretation Free Text/Narrative:: traffic monitor specialist shows normal sinus rhythm in the 70s 80s with no ectopy or arrhythmia. Acute abdominal x-ray shows evidence of moderate pulmonary obstructive disease with status post cholecystectomy, however no cardiomegaly, CHF, pulmonary infiltrates, pneumothorax, free air, ileus, obstruction, fluid levels, etc. Mild osteoarthritic changes including bilateral coxarthrosis noted. Departure - Departure Time of Disposition: 17:00 Disposition: Home, Self-Care 01 Clinical Impression: Peptic reflux disease, Hypokalemia, Hypomagnesemia, Hypoalbuminemia, Thrombophilia, Mixed anxiety depressive disorder, Caries Abdominal pain Qualifiers: Abdominal location: left lower quadrant Qualified Code(s): R10.32 - Left lower quadrant pain Hypertension Qualifiers: Hypertension type: essential hypertension Qualified Code(s): I10 - Essential ( primary) hypertension Iron deficiency anemia Qualifiers: Iron deficiency anemia type: other iron deficiency Qualified Code(s): D50.8 - Other iron deficiency anemias Asthma Qualifiers: Asthma severity: mild Asthma persistence: intermittent Asthma complication type : uncomplicated Qualified Code(s): J45.20 - Mild intermittent asthma, uncomplicated Osteoarthritis Qualifiers: Osteoarthritis location: multiple joints Osteoarthritis type: primary Qualified Code(s): M15.0 - Primary generalized (osteo)arthritis - Discharge Information *PRESCRIPTION DRUG MONITORING PROGRAM REVIEWED*: Not Applicable *COPY OF PRESCRIPTION DRUG MONITORING REPORT IN PATIENT TREY: Not Applicable Instructions: Abdominal Pain, Adult, [id number] Referrals: Ilene Forman PA-C [Primary Care Provider] - Forms: ED Department Discharge Additional Instructions: 1. Followup with your regular provider in 7 days as directed for reevaluation and recommended repeat CBC, comprehensive metabolic panel, TIBC panel, ferritin level, and magnesium level. Bring these discharge instructions with you to that visit. 2. [place] diet including encouragement of oral fluids such as sports drinks, etc. for 24-48 hours as directed. Advance to heart healthy diet as tolerated thereafter. 3. Immediately after this visit verify that your cellular telephone's voicemail has been activated and is empty. Also verify that your home telephone 's answering machine is operating properly and has space to receive messages. Note that it is sometimes necessary for us to be able to contact you at a later date to discuss your medical care. 4. Please remember that we are ALWAYS here for you and want to answer any questions you may have. Feel free to call the hospital any time and we call you back DENNY. 5. Follow-up with your dentist DENNY as discussed. - Problem List & Annotations (1) Abdominal pain SNOMED Code(s): 38643057 Code(s): R10.9 - UNSPECIFIED ABDOMINAL PAIN Status: Acute Priority: High Current Visit: Yes Onset Date: 10/28/19 Annotation/Comment:: Abdominal complaints resolved at time of discharge after aggressive therapy in the emergency room as above. Hemoccult was negative. Various therapeutic options were discussed, including possible further observation/hospitalization in this facility especially in light of patient's concomitant Eliquis and aspirin therapy and significant GI history as above. They have elected to continue observation at home with the patient's to stay with her mother this evening. Aspirin will be discontinued. Close follow-up by regular provider. Qualifiers: Abdominal location: left lower quadrant Qualified Code(s): R10.32 - Left lower quadrant pain (2) Asthma SNOMED Code(s): 991458667 Code(s): J45.909 - UNSPECIFIED ASTHMA, UNCOMPLICATED Status: Chronic Priority: Medium Current Visit: Yes Annotation/Comment:: No recent fever or bronchitic type symptoms. Qualifiers: Asthma severity: mild Asthma persistence: intermittent Asthma complication type: uncomplicated Qualified Code(s): J45.20 - Mild intermittent asthma, uncomplicated (3) Caries SNOMED Code(s): 04749038 Code(s): K02.9 - DENTAL CARIES, UNSPECIFIED Status: Chronic Priority: High Current Visit: Yes Annotation/Comment:: Patient encouraged to follow- up with her dentist DENNY with counseling given concerning the dangers of poor dentition discussed today (4) Hypertension SNOMED Code(s): 15984362 Code(s): I10 - ESSENTIAL (PRIMARY) HYPERTENSION Status: Chronic Priority : Medium Current Visit: Yes Annotation/Comment:: Stable in the emergency room. Qualifiers: Hypertension type: essential hypertension Qualified Code(s): I10 - Essential (primary) hypertension (5) Hypoalbuminemia SNOMED Code(s): 171617515 Code(s): E88.09 - OTH DISORDERS OF PLASMA-PROTEIN METABOLISM, NEC Status: Acute Priority: Medium Current Visit: Yes Onset Date: 10/28/19 Annotation/Comment:: Observe for now. Labs with regular provider as per discharge instructions. (6) Hypokalemia SNOMED Code(s): 85758423 Code(s): E87.6 - HYPOKALEMIA Status: Acute Priority: Medium Current Visit: Yes Onset Date: 10/28/19 Annotation/Comment:: Note current potassium supplementation and chronic diarrhea. No change in medical therapy for now. 1 L IV bolus of lactated Ringer's given. Close follow-up by regular provider. (7) Hypomagnesemia SNOMED Code(s): 886986841 Code(s): E83.42 - HYPOMAGNESEMIA Status: Acute Priority: Medium Current Visit: Yes Onset Date: 10/28/19 Annotation/Comment:: As above. Consider magnesium oxide therapy, however note chronic diarrhea as above. (8) Iron deficiency anemia SNOMED Code(s): 87099759 Code(s): D50.9 - IRON DEFICIENCY ANEMIA, UNSPECIFIED Status: Chronic Priority: Medium Current Visit: Yes Annotation/Comment:: No anemia today, however previous history of significant refractory iron deficiency anemia including required IV iron administration in this facility. Follow up blood work as per discharge instructions. Qualifiers: Iron deficiency anemia type: other iron deficiency Qualified Code(s): D50.8 - Other iron deficiency anemias (9) Mixed anxiety depressive disorder SNOMED Code(s): 148004322 Code(s): F41.8 - OTHER SPECIFIED ANXIETY DISORDERS Status: Chronic Priority: Medium Current Visit: Yes Annotation/Comment:: Moderate control by today's exam. Continue to observe closely by regular provider. (10) Osteoarthritis SNOMED Code(s): 895492068 Code(s): M19.90 - UNSPECIFIED OSTEOARTHRITIS, UNSPECIFIED SITE Status: Chronic Priority: Medium Current Visit: Yes Annotation/Comment:: Stable by patient history. Qualifiers: Osteoarthritis location: multiple joints Osteoarthritis type: primary Qualified Code(s): M15.0 - Primary generalized (osteo)arthritis (11) Peptic reflux disease SNOMED Code(s): 117362157 Code(s): K21.9 - GASTRO-ESOPHAGEAL REFLUX DISEASE WITHOUT ESOPHAGITIS Status: Chronic Priority: Medium Current Visit: Yes Annotation/Comment:: High-dose IV Pepcid and IV Protonix given in the emergency room. Continue to observe closely. (12) Thrombophilia SNOMED Code(s): 608595159 Code(s): D68.59 - OTHER PRIMARY THROMBOPHILIA Status: Chronic Priority: Medium Current Visit: Yes Annotation/Comment:: History of previous large bilateral PEs. Continue to observe closely and current Eliquis therapy - Problem List Review Problem List Initiated/Reviewed/Updated: Yes - My Orders Last 24 Hours: My Active Orders 10/28/19 14:49 Abdomen Series w Chest 1V [CR] Stat Sodium Chloride 0.9% [Saline Flush] 10 ml FLUSH ASDIRECTED PRN Obtain Past Medical Record [OM.PC] Urgent Peripheral IV Insertion Adult [OM.PC] Stat Resuscitation Status Stat 10/28/19 14:50 Peripheral IV Care [RC] . DIRECTED 10/28/19 14:53 Cardiac Monitoring [RC] . DIRECTED 10/28/19 Breakfast Nothing Per Oral Diet [DIET] - Assessment/Plan Last 24 Hours: My Active Orders 10/28/19 14:49 Abdomen Series w Chest 1V [CR] Stat Sodium Chloride 0.9% [Saline Flush] 10 ml FLUSH ASDIRECTED PRN Obtain Past Medical Record [OM.PC] Urgent Peripheral IV Insertion Adult [OM.PC] Stat Resuscitation Status Stat 10/28/19 14:50 Peripheral IV Care [RC] . DIRECTED 10/28/19 14:53 Cardiac Monitoring [RC] . DIRECTED 10/28/19 Breakfast Nothing Per Oral Diet [DIET] Assessment:: As above Plan: As above. Extensive precautions were given to the patient and her mother, who are in agreement with the treatment plan. See Patient Instructions for further treatment and plan.
[2019-10-28 15:16] LABS: CHLORIDE,CL 107 mmol/L (98-107); SODIUM,NA 142 mmol/L (136-145)
[2019-10-28] MEDS: Ondansetron 4 MG/2 ML SDV IVPUSH ONE (15:16)
[2019-10-28] MEDS: Famotidine 20 MG/2 ML SDV IVPUSH ONE (15:16)
[2019-10-28] MEDS: Sodium Chloride 0.9% 10 ML Syringe FLUSH PRN (15:17)
[2019-10-28] MEDS: Lactated Ringers 1,000 ML IV ONE (15:17)
[2019-10-28] MEDS: Pantoprazole 40 MG Vial IVPUSH ONE (15:17)
== END 2019-10-28 17:15 | disposition home or self-care (01) ==
LOC: LL.ED 14:46
DX: K27.9 Peptic ulcer, site unspecified, unspecified as acute or chronic, without hemorrhage or perforation (principal); E87.6 Hypokalemia; E83.42 Hypomagnesemia; I27.20 Pulmonary hypertension, unspecified; D50.8 Other iron deficiency anemias; F41.8 Other specified anxiety disorders; J45.20 Mild intermittent asthma, uncomplicated; M89.49 Other hypertrophic osteoarthropathy, multiple sites; E88.09 Other disorders of plasma-protein metabolism, not elsewhere classified; D68.59 Other primary thrombophilia; K02.9 Dental caries, unspecified; Z86.718 Personal history of other venous thrombosis and embolism; K21.9 Gastro-esophageal reflux disease without esophagitis; E11.9 Type 2 diabetes mellitus without complications; E03.9 Hypothyroidism, unspecified; Z79.01 Long term (current) use of anticoagulants; Z87.891 Personal history of nicotine dependence; Z88.0 Allergy status to penicillin; Z79.899 Other long term (current) drug therapy
CPT/HCPCS: 36415; 74022; 80053; 82150; 82272; 83605; 83690; 83735; 84550; 84703; 85025; 85610; 85730; 96361; 96374; 96375; 99283-25; C9113; J2405; J3490; J7120

== ENCOUNTER 2020-01-08 13:59 | Emergency (ER) | payer MEDICAID ==
--- NOTE | 2020-01-08 15:24 | EDM.PDOC ---
ED HPI GENERAL MEDICAL PROBLEM - General Chief Complaint: Respiratory Problem Stated Complaint: fever, cough Time Seen by Provider: 01/08/20 14:37 Source of Information: Reports: Patient, Family History Limitations: Reports: No Limitations - History of Present Illness INITIAL COMMENTS - FREE TEXT/NARRATIVE: Cough, chest/lung discomfort, fever. Started this morning. Father has similar symptoms and was seen yesterday. He tested negative for influenza. Achy. Took OTC cough medication. Some improvement with cough. Has Albuterol MDI at home for PRN cough/sob. Denies other changes. HEENT negative for vision changes/ear pain/nasal congestion/ST. Non-productive cough. No increased SOB. Hx of previous PEs/on Eliquis. GI: has chronic issues with emesis related to reflux/daily loose stools. These have not changed. : negative for UTI complaints/hematuria. Neuro negative for focal changes. No rashes. Treatments AUTOMATION QTP TESTER: Reports: Other (see below) Other Treatments AUTOMATION QTP TESTER: cough syrup Chest Pain Score (Numeric/FACES): 8 - Related Data Allergies Allergy/AdvReac Type Severity Reaction Status Date / Time Penicillins Allergy Rash Verified 01/08/20 14:05 Home Meds: Home Meds ARIPiprazole [Abilify] 10 mg PO DAILY 07/31/14 [History] Escitalopram [Lexapro] 30 mg PO DAILY 07/31/14 [History] Losartan/Hydrochlorothiazide [Losartan-HCTZ 50-12.5 MG] 1 tab PO DAILY 07/31/14 [History] Pantoprazole [ProTONIX Granules] 40 mg PO BID 07/31/14 [History] traZODone 50 mg PO BEDTIME 07/31/14 [History] Albuterol [Ventolin HFA] 2 puff INH Q4H PRN 07/12/19 [History] Apixaban [Eliquis] 1 tab PO BID 07/12/19 [History] Ferrous Sulfate [Iron] 1 tab PO Q2D 07/12/19 [History] Levothyroxine 1 tab PO DAILY 07/12/19 [History] Ondansetron [Zofran ODT] 1 tab SL Q4H PRN 07/12/19 [History] Potassium Chloride [Klor-Con 10] 1 tab PO DAILY 07/12/19 [History] busPIRone [Buspar] 1 tab PO BID 07/12/19 [History] Benzonatate [Tessalon Perle] 100 mg PO ASDIRECTED PRN #40 capsule 01/08/20 [Rx] Past Medical History HEENT History: Reports: Allergic Rhinitis, Impaired Vision Other HEENT History: Patient wears soft contact lenses. Cardiovascular History: Reports: Blood Clots/VTE/DVT, Heart Murmur, Hypertension , Pulmonary Hypertension, Syncope, Other (See Below) Other Cardiovascular History: Pulmonary hypertension secondary to large bilateral PEs April 2019 requiring interventional localized thrombolytics as below. Initial large thrombus of the right superficial saphenous vein on 03/31/18 with subsequent similar lesion in the left leg on 05/14/19 resulting in lateral PEs. Syncopal episode of unknown etiology on 08/20/19 with no subsequent workup. Respiratory History: Reports: Asthma, Bronchitis, Recurrent, Intubation, Previous, PE, Other (See Below) Other Respiratory History: Large bilateral PEs as above. Gastrointestinal History: Reports: Cholelithiasis, Chronic Diarrhea, GERD, Hiatal Hernia Genitourinary History: Reports: UTI, Recurrent DONOR RELATIONS ASSOCIATE History: Reports: Polycystic Ovaries, , Other (See Below) Other DONOR RELATIONS ASSOCIATE History: Normal LMP one week ago. HELLP syndrome and toxiemia with premature delivery by at 28 weeks gestation in second . Otherwise first was full-term by normal spontaneous delivery without complications during delivery or . Musculoskeletal History: Reports: Arthritis, Back Pain, Chronic, Fracture, Neck Pain, Chronic, Osteoarthritis, Other (See Below) Other Musculoskeletal History: Left femoral fracture in 2018. Multiple ligamental tears including ACL tear in the right knee with surgeries as below. Neurological History: Reports: Headaches, Chronic, Migraines, Other (See Below) Other Neuro History: Previous migraine headaches currently not problematic. 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 Endocrine/Metabolic History: Reports: Diabetes, Type II, Hypothyroidism, Other ( See Below) Other Endocrine/Metabolic History: Prediabetes/borderline AODM. Hematologic History: Reports: Anemia, Anticoagulation Therapy, Bleeding Disorder , Blood Transfusion(s), Other (See Below) Other Hematologic History: Multiple previous blood transfusions from previous abdominal surgeries. Iron deficiency anemia with chronic fatigue. Hx Thrombophilia with clotting disorder. Immunologic History: Reports: None Oncologic (Cancer) History: Reports: None Dermatologic History: Reports: Other (See Below) Other Dermatologic History: Acne vulgaris. - Infectious Disease History Infectious Disease History: Reports: Chicken Pox, Mononucleosis, Pertussis ( Whooping Cough), Shingles - Past Surgical History Head Surgeries/Procedures: Reports: None HEENT Surgical History: Reports: Adenoidectomy, Oral Surgery, Tonsillectomy, Other (See Below) Other HEENT Surgeries/Procedures: Tonsillectomy and adenoidectomy at age 14. Multiple teeth extractions. Cardiovascular Surgical History: Reports: None Respiratory Surgical History: Reports: Other (See Below) Other Respiratory Surgeries/Procedures: Intra-pulmonary PE thrombolysis bilaterally on 05/14/19. GI Surgical History: Reports: Cholecystectomy, EGD, Hernia, Abdominal, Hernia Repair/Other, Antonio Fundoplication, Other (See Below) Other GI Surgeries/Procedures: Multiple abdominal hernia repairs last on . Colonoscopy in about 2014. Multiple previous EGDs with last EGD with biopsy on 09/21/17. Antonio fundoplication with subsequent complication of mesh invasion into the lower esophagus requiring mesh removal in 2010. Laparoscopic cholecystectomy in about 2007. Female Surgical History: Reports: Section Endocrine Surgical History: Reports: None Neurological Surgical History: Reports: None Musculoskeletal Surgical History: Reports: Arthroscopic Knee, Arthroscopic Procedure, Other (See Below) Other Musculoskeletal Surgeries/Procedures:: Right knee arthroscopic surgeries in 1990 and 1991. Oncologic Surgical History: Reports: None Dermatological Surgical History: Reports: None - Past Imaging History Past Imaging History: Reports: Angiography (Interventional radiology angiogram of the chest/lungs on 05/17/19, 05/16/19, and 05/15/19.), Cardiac Echo (Trans- esophageal echocardiogram on 05/18/19 with ejection fraction of 65% with previous transthoracic echocardiograms on 05/14/19 and 07/13/15.), CAT Scan (CT of the head on 08/21/19. CTA of the chest on 07/12/19 and 05/14/19. CT of the chest on 05/19/19.), Mammogram (Last on 08/18/19.), MRI (Right knee on 10/21/18.) , Upper GI X-Ray/Series (05/11/17), Venous Doppler (Venous Doppler studies of the legs bilaterally and 05/14/19 positive for left thrombus as above with previous negative venous Doppler study of the left leg on 06/09/18 however positive right leg venous Doppler study on 03/31/18 with results as above.) Social & Family History - Tobacco Use Smoking Status *Q: Former Smoker Years of Tobacco use: 10 Used Tobacco, but Quit: Yes Month/Year Tobacco Last Used: 2000 - Caffeine Use Caffeine Use: Reports: Soda Caffeine Use Comment: Occasional soda - Recreational Drug Use Recreational Drug Use: No - Living Situation & Occupation Living situation: Reports: (2013), Alone Occupation: Unemployed (Multiple previous jobs) ED ROS GENERAL - Review of Systems Review Of Systems: Comprehensive ROS is negative, except as noted in HPI. ED EXAM, GENERAL - Physical Exam Exam: See Below Exam Limited By: No Limitations General Appearance: Alert, No Apparent Distress, Obese, Other (appears tired/ uncomfortable) Eye Exam: Bilateral Eye: EOMI, PERRL Ears: Normal External Exam, Normal Canal, Hearing Grossly Normal, Normal TMs Nose: No: Nasal Deformity, Nasal Swelling, Nasal Drainage Throat/Mouth: Normal Lips, Normal Oropharynx, Normal Voice, No Airway Compromise Head: Atraumatic, Normocephalic Neck: Normal Inspection, Supple, Non-Tender, Full Range of Motion. No: Lymphadenopathy (L), Lymphadenopathy (R) Respiratory/Chest: No Respiratory Distress, Lungs Clear, Normal Breath Sounds, No Accessory Muscle Use, Chest Non-Tender Cardiovascular: Regular Rate, Rhythm, No Murmur GI/Abdominal: Normal Bowel Sounds, Soft, Non-Tender, No Distention (Female) Exam: Deferred Rectal (Female) Exam: Deferred Back Exam: No: CVA Tenderness (L), CVA Tenderness (R), Muscle Spasm, Paraspinal Tenderness, Vertebral Tenderness Extremities: Normal Range of Motion, Normal Capillary Refill Neurological: Alert, Oriented, Normal Cognition, Normal Gait Psychiatric: Normal Affect, Normal Mood Skin Exam: Warm, Dry, Intact, Normal Color Course - Vital Signs Last Recorded V/S: Last Vital Signs Temp 37.8 C 01/08/20 14:01 Pulse 106 H 01/08/20 14:01 Resp 20 01/08/20 14:01 BP 140/86 01/08/20 14:01 Pulse Ox 98 01/08/20 14:01 - Orders/Labs/Meds Orders: Active Orders 24 hr Category Date Time Status CXR [Chest 2V] [CR] Stat Exams 01/08/20 14:16 Taken Labs: Laboratory Tests 01/08/20 01/08/20 01/08/20 Range/Units 14:22 14:22 14:22 WBC 8.4 (4.0-10.2) K/uL RBC 4.56 (3.77-5.09) M/uL Hgb 12.1 (11.7-15.5) g/dL Hct 39.3 (34.0-46.0) % MCV 86.2 (84.0-98.0) fL MCH 26.5 L (28.2-33.3) pg MCHC 30.8 L (31.7-36.0) g/dL RDW 14.8 H (11.2-14.1) % Plt Count 263 (150-350) K/uL Neut % (Auto) 85.0 H (45.0-80.0) % Lymph % (Auto) 8.5 L (10.0-50.0) % [place]pherson % (Auto) 5.6 (2.0-14.0) % Eos % (Auto) 0.8 (0.0-5.0) % Baso % (Auto) 0.1 (0.0-2.0) % Neut # (Auto) 7.09 H (1.40-7.00) K/uL Lymph # (Auto) 0.71 (0.50-3.50) K/uL Mcpherson # (Auto) 0.47 (0.00-1.00) K/uL Eos # (Auto) 0.07 (0.00-0.50) K/uL Baso # (Auto) 0.01 (0.00-0.20) K/uL D-Dimer, Quantitative 131 (0-400) ng/mL Sodium 140 (136-145) mmol/L Potassium 4.2 (3.5-5.1) mmol/L Chloride 103 (98-107) mmol/L Carbon Dioxide 26.1 (21.0-32.0) mmol/L BUN 15 (7-18) mg/dL Creatinine 1.18 H (0.51-1.17) mg/dL Est Cr Clr Drug Dosing 55.77 mL/min Estimated GFR (MDRD) 49 mL/min Glucose 116 H (74-106) mg/dL Lactic Acid (0.4-2.0) mmol/L Calcium 8.7 (8.5-10.1) mg/dL Total Bilirubin 0.2 (0.2-1.0) mg/dL AST 16 (15-37) U/L ALT 17 (12-78) U/L Alkaline Phosphatase 81 (46-116) IU/L Total Protein 7.2 (6.4-8.2) g/dL Albumin 3.6 (3.4-5.0) g/dL Specimen Type Urine Color Urine Appearance Urine pH (5.0-9.0) Ur Specific [place] (1.005-1.030) Urine Protein (NEGATIVE) mg/dL Urine Glucose (UA) (NEGATIVE) mg/dL Urine Ketones (NEGATIVE) mg/dL Urine Occult Blood (NEGATIVE) Urine Nitrite (NEGATIVE) Urine Bilirubin (NEGATIVE) Urine Urobilinogen (0.2-1.0) E.U./dL Ur Leukocyte Esterase (NEGATIVE) Urine RBC /HPF Urine WBC /HPF Ur Epithelial Cells /LPF Urine Bacteria (NONE TO FEW) /HPF 01/08/20 01/08/20 Range/Units 14:22 14:30 WBC (4.0-10.2) K/uL RBC (3.77-5.09) M/uL Hgb (11.7-15.5) g/dL Hct (34.0-46.0) % MCV (84.0-98.0) fL MCH (28.2-33.3) pg MCHC (31.7-36.0) g/dL RDW (11.2-14.1) % Plt Count (150-350) K/uL Neut % (Auto) (45.0-80.0) % Lymph % (Auto) (10.0-50.0) % [place] % (Auto) (2.0-14.0) % Eos % (Auto) (0.0-5.0) % Baso % (Auto) (0.0-2.0) % Neut # (Auto) (1.40-7.00) K/uL Lymph # (Auto) (0.50-3.50) K/uL [place] # (Auto) (0.00-1.00) K/uL Eos # (Auto) (0.00-0.50) K/uL Baso # (Auto) (0.00-0.20) K/uL D-Dimer, Quantitative (0-400) ng/mL Sodium (136-145) mmol/L Potassium (3.5-5.1) mmol/L Chloride (98-107) mmol/L Carbon Dioxide (21.0-32.0) mmol/L BUN (7-18) mg/dL Creatinine (0.51-1.17) mg/dL Est Cr Clr Drug Dosing mL/min Estimated GFR (MDRD) mL/min Glucose (74-106) mg/dL Lactic Acid 1.4 (0.4-2.0) mmol/L Calcium (8.5-10.1) mg/dL Total Bilirubin (0.2-1.0) mg/dL AST (15-37) U/L ALT (12-78) U/L Alkaline Phosphatase (46-116) IU/L Total Protein (6.4-8.2) g/dL Albumin (3.4-5.0) g/dL Specimen Type Urinblad Urine Color Yellow Urine Appearance Clear Urine pH 5.5 (5.0-9.0) Ur Specific [place] 1.025 (1.005-1.030) Urine Protein Negative (NEGATIVE) mg/dL Urine Glucose (UA) Negative (NEGATIVE) mg/dL Urine Ketones Negative (NEGATIVE) mg/dL Urine Occult Blood Large H (NEGATIVE) Urine Nitrite Negative (NEGATIVE) Urine Bilirubin Negative (NEGATIVE) Urine Urobilinogen 0.2 (0.2-1.0) E.U./dL Ur Leukocyte Esterase Negative (NEGATIVE) Urine RBC 5-10 H /HPF Urine WBC 0-5 /HPF Ur Epithelial Cells Few /LPF Urine Bacteria Few (NONE TO FEW) /HPF - Radiology Interpretation Free Text/Narrative:: Chest xray did not show acute changes/infiltrates. Pending Radiology review. - Re-Assessments/Exams Free Text/Narrative Re-Assessment/Exam: Vital signs stable. CBC/Chem/DDimer overall unremarkable. Mag slightly low at 1.7 Has history of low mag, advised patient to start daily supplementation. Influenza A positive. Normal lactic acid. Patient declined Tamiflu after reviewing risk/benefit/side effects. Given her chronic issues with reflux/emesis related to reflux/chronic loose stools she did not with to make it worse if she experienced these same side effects from the medication. Rx for Tessalon sent to pharmacy for patient. Precautions reviewed. To follow up as needed if she has any worsening problems/ concerns. Departure - Departure Time of Disposition: 15:22 Disposition: Home, Self-Care 01 Condition: Good Clinical Impression: Influenza A - Discharge Information *PRESCRIPTION DRUG MONITORING PROGRAM REVIEWED*: Not Applicable *COPY OF PRESCRIPTION DRUG MONITORING REPORT IN PATIENT TREY: Not Applicable Prescriptions: Benzonatate [Tessalon Perle] 100 mg PO ASDIRECTED PRN #40 capsule PRN Reason: Cough Instructions: Influenza, Adult, [id number] Referrals: PCP,None [Primary Care Provider] - Forms: ED Department Discharge Additional Instructions: Rest/stay hydrated! Follow up as needed if you have sudden worsening problems/concerns! Sepsis Event Note - Evaluation Sepsis Screening Result: Possible Sepsis Risk - Focused Exam Vital Signs: Vital Signs Temp Pulse Resp BP Pulse Ox 01/08/20 14:01 37.8 C 106 H 20 140/86 98 Date Exam was Performed: 01/08/20 Time Exam was Performed: 15:40 - My Orders Last 24 Hours: My Active Orders 01/08/20 14:16 CXR [Chest 2V] [CR] Stat - Assessment/Plan Last 24 Hours: My Active Orders 01/08/20 14:16 CXR [Chest 2V] [CR] Stat
== END 2020-01-08 15:38 | disposition home or self-care (01) ==
LOC: LL.ED 13:59
DX: J10.1 Influenza due to other identified influenza virus with other respiratory manifestations (principal); I10 Essential (primary) hypertension; E11.9 Type 2 diabetes mellitus without complications; E03.9 Hypothyroidism, unspecified; D64.9 Anemia, unspecified; Z87.891 Personal history of nicotine dependence; Z79.01 Long term (current) use of anticoagulants; Z86.718 Personal history of other venous thrombosis and embolism
CPT/HCPCS: 36415; 71046; 80053; 81001; 83605; 85025; 85379; 87804; 99285-25

== ENCOUNTER 2020-02-09 09:37 | Day surgery (SDC) | payer MEDICAID ==
[~2020-02-09 09:37] MED LIST: Midazolam 1 MG/ML 2 ML SDV ONE; Propofol 200 MG/20 ML SDV ONE; Sodium Chloride 0.9% 10 ML Syringe FLUSH PRN
[2020-02-09] MEDS: Lactated Ringers 1,000 ML IV SCH (10:47)
[2020-02-09] MEDS ORDERED: Lidocaine 2% 5 ML SDV ONE (11:15)
--- NOTE | 2020-02-09 11:40 | PCM.HPR ---
H & P Addendum review - H & P Addendum Review Date of Original H & P: 01/31/20 Date Reviewed: 02/09/20 Time Reviewed: 11:10 Patient was Examined: No Changes
--- NOTE | 2020-02-09 11:42 | PCM.OPNOTE ---
- General Post-Op/Procedure Note Date of Surgery/Procedure: 02/09/20 Operative Procedure(s): EGD with bx Findings: Erosions in esophagus Pre Op Diagnosis: GERD Post-Op Diagnosis: Same Anesthesia Technique: MAC Primary Surgeon: Nicolás [place] Anesthesia Provider: Gilda Cerda EBAsha in mLs: 0 Complications: None Condition: Good
--- NOTE | 2020-02-10 09:47 | OR ---
Date of Procedure: 02/09/2020 PREOPERATIVE DIAGNOSES: Gastroesophageal reflux disease with recent emesis. POSTOPERATIVE DIAGNOSIS: Erosive esophagitis. PROCEDURE: Esophagogastroduodenoscopy with biopsy. ANESTHESIA: IV sedation. PROCEDURE IN DETAIL: Patient was brought to the procedure room where she was placed on her left side, and IV sedation administered. Oral bite block was placed, and the upper endoscope advanced into the esophagus under direct vision without difficulty. Vocal cords were viewed and were normal. Scope was advanced to the third portion of the duodenum. Duodenum and pylorus are normal. Antrum and body of the stomach are normal other than many hyperplastic polyps. Retroflexion reveals a loose lower esophageal sphincter. It appears that her previous Antonio wrap is not intact. Squamocolumnar junction is normal. She has several small erosion areas in the distal esophagus. I did take 4 random biopsies from this area. There were no strictures or ulcers present. Air was removed from the stomach, and the scope withdrawn through the remaining esophagus, which appears normal. Patient tolerated the procedure well and returned to recovery in stable condition. I will have the patient followup with Ilene Forman PA-C, for review of biopsies next week. If she has been treated with maximal medical therapy and has done appropriate lifestyle changes of exercise, weight loss, and dietary restrictions, she could be referred to General Surgery for discussion of redo anti-reflux wrap. RUPERTO RICHARDS MD /[id number]
== END 2020-02-09 12:40 | disposition home or self-care (01) ==
LOC: LL.SDS 09:37
PROVIDERS: ATTEND Surgery
DX: K22.10 Ulcer of esophagus without bleeding (principal); K21.0 Gastro-esophageal reflux disease with esophagitis; I10 Essential (primary) hypertension; E03.9 Hypothyroidism, unspecified; E66.9 Obesity, unspecified; Z79.899 Other long term (current) drug therapy; Z88.0 Allergy status to penicillin; Z79.890 Hormone replacement therapy; Z90.49 Acquired absence of other specified parts of digestive tract; Z98.890 Other specified postprocedural states; Z87.891 Personal history of nicotine dependence; Z68.38 Body mass index [BMI] 38.0-38.9, adult
CPT/HCPCS: 43239; J2001; J2250; J2704; J7120

== ENCOUNTER 2020-08-10 12:25 | Emergency (ER) | payer MEDICAID ==
--- NOTE | 2020-08-10 12:34 | EDM.PDOC ---
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 Stated Complaint: Heavy menstrual bleeding Time Seen by Provider: 08/10/20 12:34 Source of Information: Reports: Patient, Old Records ([facility] chart/EMR), Other ([facility] reviewed on 10/28/2019) History Limitations: Reports: No Limitations - History of Present Illness INITIAL COMMENTS - FREE TEXT/NARRATIVE: The patient drove herself to the emergency room via private automobile for evaluation of persistent progressive severe hypermenorrhea despite recent aggressive therapy, including tranexamic acid therapy of 1300 mg 3 times daily for 4 days, which was initiated on 06/19 with subsequent course of Micronor therapy about to be completed today. Her hypermenorrhea did initially improve with the above therapy, however the last 3 days she has had progressive severe hypermenorrhea, including soaked tampons and pads on an hourly basis. Note current Eliquis therapy secondary to recurrent DVTs and PE. The patient denies any chest pain/pressure, heart flutter, dizziness, orthostasis, orthopnea, diaphoresis, paresthesias, recent decreased exercise tolerance, or any other anginal-type symptoms. No recent history of abdominal pain, heartburn, nausea, diarrhea, melena, gross hematochezia, or any food intolerance, including fatty foods, etc.. She denies any gross hematuria, colic, or other UTI symptoms. The patient also denies any recent fever, cough, wheezing, dyspnea, etc... No history of recent headaches, visual changes, diplopia, change in mental status, or other change in neurological status. She has had extensive problems with hypermenorrhea and dysmenorrhea during the last 4 months with negative endometrial biopsy as below, however positive ultrasound for fibroids. Onset: Gradual, Other (As above) Duration: Getting Worse Location: Reports: Pelvis (Uterine). Denies: Head, Face, Neck, Chest, Abdomen, Back, Upper Extremity, Left, Upper Extremity, Right, Lower Extremity, Left, Lower Extremity, Right, Generalized, Radiates to Quality: Reports: Same as Previous Episode, Stabbing Severity: Moderate Improves with: Reports: None Worsens with: Reports: None Context: Reports: Other (As above). Denies: Sick Contact, Trauma Associated Symptoms: Denies: Confusion, Chest Pain, Cough, Diaphoresis, Fever/Chills, Headaches, Loss of Appetite, Malaise, Nausea/Vomiting, Rash, Syncope, Weakness Treatments DIRECTOR CRITICAL CARE: Reports: Other Medication(s) (As above) Uterine Pain Score (Numeric/FACES): 7 - Related Data Allergies Allergy/AdvReac Type Severity Reaction Status Date / Time Penicillins Allergy Rash Verified 08/10/20 12:26 Home Meds: Home Meds ARIPiprazole [Abilify] 10 mg PO DAILY 07/31/14 [History] Escitalopram [Lexapro] 30 mg PO DAILY 07/31/14 [History] Losartan/Hydrochlorothiazide [Losartan-HCTZ 50-12.5 MG] 1 tab PO DAILY 07/31/14 [History] Pantoprazole [ProTONIX Granules] 40 mg PO BID 07/31/14 [History] traZODone 50 mg PO BEDTIME 07/31/14 [History] Albuterol [Ventolin HFA] 2 puff INH Q4H PRN 07/12/19 [History] Apixaban [Eliquis] 1 tab PO BID 07/12/19 [History] Ferrous Sulfate [Iron] 1 tab PO DAILY 07/12/19 [History] Levothyroxine 1 tab PO DAILY 07/12/19 [History] Ondansetron [Zofran ODT] 1 tab SL Q4H PRN 07/12/19 [History] busPIRone [Buspar] 1 tab PO BID 07/12/19 [History] Potassium Chloride 20 meq PO DAILY #14 tablet.er 08/10/20 [Rx] medroxyPROGESTERone [Provera] 10 mg PO QPM #10 tab 08/10/20 [Rx] Past Medical History HEENT History: Reports: Allergic Rhinitis, Impaired Vision. Denies: Cataract, Glaucoma, Hard of Hearing, Otitis Media, Sinusitis, Other (See Below) Other HEENT History: Patient wears soft contact lenses. Cardiovascular History: Reports: Blood Clots/VTE/DVT, High Cholesterol, H ypertension, Pulmonary Hypertension, Syncope. Denies: Afib, Aneurysm, Arrhythmia, CAD, Heart Failure, Heart Murmur, FL, PVD Other Cardiovascular History: Pulmonary hypertension secondary to large bilateral PEs April 2019 requiring interventional localized thrombolytics as below. Initial large thrombus of the right superficial saphenous vein on 03/31/18 with subsequent similar lesion in the left leg on 05/14/19 resulting in bilateral PEs. Note current Eliquis therapy. Syncopal episode of unknown etiology on 08/20/19 with no subsequent workup. Respiratory History: Reports: Intubation, Previous, PE. Denies: Asthma, Bronchitis, Recurrent, COPD, Intubation, Difficult, Pneumonia, Recurrent, Pneumothorax, Sleep Apnea, TB Other Respiratory History: Large bilateral PEs as above. Gastrointestinal History: Reports: GERD, Hiatal Hernia, Other (See Below). Denies: Celiac Disease, Cholelithiasis, Chronic Constipation, Chronic Diarrhea, Colon Polyp, Fatty Liver, Fecal Incontinence, Gastritis, GI Bleed, Hepatitis, Irritable Bowel Syndrome, Jaundice, Pancreatitis, PUD Other Gastrointestinal History: Ventral Hernia Genitourinary History: Reports: None. 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 Denies: Endometriosis, Spontaneous : 2 Para: 2 LMP (Approximate): Other (See Below) Other SENIOR CENTER DIRECTOR History: For menorrhagia and dysmenorrhea since February 2020. HELLP syndrome and toxiemia with premature delivery by at 28 weeks gestation in second . Otherwise first was full-term by normal spontaneous delivery without complications during delivery or . Musculoskeletal History: Reports: Arthritis, Back Pain, Chronic, Fracture, Neck Pain, Chronic, Osteoarthritis, Other (See Below). Denies: Amputation, Gout, RA, SLE Other Musculoskeletal History: Left femoral fracture in 2018. Multiple ligamental tears including ACL tear in the right knee with surgeries as below. Neurological History: Reports: Headaches, Chronic, Migraines, Other (See Below). Denies: Alzheimers Disease, Cerebral Aneurysms, Concussion, CVA, Head Trauma, MS, Neuropathy, Peripheral, Parkinson's, Seizure, TIA Other Neuro History: Previous migraine headaches currently not problematic. Psychiatric History: Reports: Addiction, Anxiety, Depression, Psych Hospitalization(s), PTSD, Suicidal Ideation. 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 Endocrine/Metabolic History: Reports: Hypothyroidism, Obesity/BMI 30+. Denies: Diabetes, Gestational, Diabetes, Type I, Diabetes, Type II, Diabetes Mellitus, Type 3c Other Endocrine/Metabolic History: Prediabetes/borderline AODM. Hematologic History: Reports: Anemia, Anticoagulation Therapy, Bleeding Disorder, Blood Transfusion(s), Other (See Below). Denies: B12 Deficiency, Iron Deficiency Other Hematologic History: Multiple previous blood transfusions from previous abdominal surgeries. Iron deficiency anemia with chronic fatigue. Hx Thrombophilia with clotting disorder. Immunologic History: Reports: None. Denies: AIDS, HIV, SLE Oncologic (Cancer) History: Reports: None. Denies: Basal Cell Carcinoma, Breast, Cervix, Colon, Hodgkin's Lymphoma, Leukemia, Lymphoma, Malignant Melanoma, Non-Hodgkin's Lymphoma, Ovarian, Squamous Cell Carcinoma, Uterine Dermatologic History: Reports: Other (See Below). Denies: Eczema, Psoriasis Other Dermatologic History: Acne vulgaris. - Infectious Disease History Infectious Disease History: Reports: Chicken Pox, Influenza (Influenza A on 01/08/2020.), Mononucleosis, Pertussis (Whooping Cough), Shingles. Denies: C- Difficile, Helicobacter Pylori, Measles, Meningitis, MRSA, Mumps, Rheumatic Fever, Rubella, Scarlet Fever, TB, VRE - Past Surgical History Head Surgeries/Procedures: Reports: None HEENT Surgical History: Reports: Adenoidectomy, Oral Surgery, Tonsillectomy, Other (See Below). Denies: Eye Surgery, Myringotomy w Tube(s), Naso-Sinus Angela jez Other HEENT Surgeries/Procedures: Tonsillectomy and adenoidectomy at age 14. Multiple teeth extractions. Cardiovascular Surgical History: Reports: None. Denies: Varicose Respiratory Surgical History: Reports: None. Denies: Thoracentesis GI Surgical History: Reports: Cholecystectomy, EGD, Antonio Fundoplication, Other (See Below). Denies: Appendectomy, Colonoscopy, Hernia, Inguinal, Hernia Repair/Other, Polypectomy Other GI Surgeries/Procedures: Multiple abdominal hernia repairs last on 06/07/2014. EGD with negative biopsy for H. pylori on 02/09/2020 with previous multiple EGDs including on 09/21/2017. Colonoscopy in about 2014. Antonio fundoplication with subsequent mesh complication and invasion into the lower esophagus requiring mesh removal in 2010. Laparoscopic cholecystectomy in about 2007. Female Surgical History: Reports: Section, Other (See Below). Denies: D&C, Hysterectomy, Salpingo-Oophorectomy, Tubal Ligation Other Female Surgeries/Procedures: Apparent negative endometrial biopsy at [facility] in May 2020. Endocrine Surgical History: Reports: None. Denies: Thyroid Biopsy Neurological Surgical History: Reports: None. Denies: C-Spine, Discectomy, Laminectomy, Lumbar Spine, Sacral Spine, Spinal Fusion, Thoracic Spine, Vertebroplasty Musculoskeletal Surgical History: Reports: Arthroscopic Knee, Arthroscopic Procedure, Other (See Below). Denies: Carpal Tunnel, Ganglion Cyst, Joint Replacement, ORIF, Shoulder Surgery Other Musculoskeletal Surgeries/Procedures:: Right knee arthroscopic surgery in 1990 and 1991. Oncologic Surgical History: Reports: None Dermatological Surgical History: Reports: None - Past Imaging History Past Imaging History: Reports: Angiography (Interventional radiology angiogram of the chest/lungs on 05/17/19, 05/16/19, and 05/15/19.), Cardiac Echo (Trans- esophageal echocardiogram on 05/18/19 with ejection fraction of 65% with previous transthoracic echocardiograms on 05/14/19 and 07/13/15.), CAT Scan (CT of the head on 08/21/19. CTA of the chest on 07/12/19 and 05/14/19. CT of the chest on 05/19/19.), Mammogram (Last on 08/18/19.), MRI (Right knee on 10/21/18.), Ultrasound (Pelvic ultrasound positive for fibroids on 06/26/2020.), Upper GI X-Ray/Series (05/11/17), Venous Doppler (Venous Doppler studies of the legs bilaterally and 05/14/19 positive for left thrombus as above with previous negative venous Doppler study of the left leg on 06/09/18 however positive right leg venous Doppler study on 03/31/18 with results as above.) Social & Family History - Tobacco Use Smoking Status *Q: Former Smoker Tobacco Use Within Last Twelve Months: No Years of Tobacco use: 13 Packs/Tins Daily: 2 Packs/Tins Daily Comment: Smoked between ages 13 and 26 Used Tobacco, but Quit: Yes Smoking Cessation Information Provided To Patient: No Second Hand Smoke Exposure: No Second Hand Smoke Education Provided: No - Caffeine Use Caffeine Use: Reports: Soda (23 sodas per day). Denies: Coffee, Energy Drinks, Tea - Alcohol Use Alcohol Use History: Yes Days Per Week of Alcohol Use: 0 Number of Drinks Per Day: 1 Number of Drinks Per Day Comment: Usually for holidays. No previous DWIs, problems with alcohol abuse, etc. Total Drinks Per Week: 0 Alcohol Use in Last Twelve Months: Yes Alcohol Use Frequency: Rarely - Recreational Drug Use Recreational Drug Use: Yes Drug Use in Last 12 Months: No Recreational Drug Type: Reports: Amphetamines (Speed) (Experimental in 2009), Marijuana/Hashish (Experimental as a teenager), Methamphetamine (As above). Denies: Cocaine, Heroin, Inhalants (Glues, Solvents, Aerosols), LSD (Acid), Morphine, Oxycodone - Living Situation & Occupation Living situation: Reports: (2013), Alone Occupation: Unemployed (Multiple previous jobs) ED ROS GENERAL - Review of Systems Review Of Systems: Comprehensive ROS is negative, except as noted in HPI. ED EXAM, RENAL/ - Physical Exam Exam: See Below Exam Limited By: No Limitations General Appearance: Alert, WD/WN, No Apparent Distress Head: Atraumatic, Normocephalic. No: Facial Swelling, Facial Tenderness, Sinus Tenderness Neck: Normal Inspection, Supple, Non-Tender, Full Range of Motion. No: Lymphadenopathy (L), Lymphadenopathy (R), Thyromegaly Respiratory/Chest: No Respiratory Distress, Lungs Clear, Normal Breath Sounds, No Accessory Muscle Use, Chest Non-Tender. No: Pleural Rub, Retractions Cardiovascular: Normal Peripheral Pulses, Regular Rate, Rhythm, No Edema, No Gallop, No JVD, No Murmur, No Rub. No: Gallop/S3, Gallop/S4, Friction Rub GI/Abdominal: Normal Bowel Sounds, Soft, Non-Tender, No Organomegaly, No Distention, No Abnormal Bruit, No Mass, Pelvis Stable, Other (Obese ). No: Guarding (Female) Exam: Enlarged Uterus (Mild including possible fibroid), Vaginal Bleeding (Mild to moderate with no acute clots at time of exam). No: Adnexal Mass, Adnexal Tenderness, Cervical Dilatation, Cervical Discharge, Cervix Motion Tenderness Rectal (Female) Exam: Deferred Back Exam: Normal Inspection, Full Range of Motion. No: CVA Tenderness (L), CVA Tenderness (R), Muscle Spasm Extremities: Normal Inspection, Normal Range of Motion, Non-Tender, No Pedal Edema, Normal Capillary Refill. No: Naomy's Sign Neurological: Alert, Oriented, CN II-XII Intact, Normal Cognition, Normal Gait, Normal Reflexes, No Motor/Sensory Deficits, Other (No clinical orthostasis) Psychiatric: Normal Affect, Normal Mood Skin Exam: Warm, Dry, Intact, Normal Color, No Rash. No: Diaphoretic, Ecchymosis, Pallor, Petechiae, Wound/Incision Lymphatic: No Adenopathy Course - Vital Signs Last Recorded V/S: Last Vital Signs Temp 36.1 C 08/10/20 12:32 Pulse 82 08/10/20 12:32 Resp 17 08/10/20 12:32 BP 125/82 08/10/20 12:32 Pulse Ox 97 08/10/20 12:32 Vital Signs - 24 hr 08/10/20 12:32 Temperature [ 36.1 C Temporal] Pulse, 82 Peripheral [ Pulse Oximetry] Respiratory 17 Rate Blood Pressure 125/82 [Left Upper Arm ] O2 Sat by Pulse 97 Oximetry - Orders/Labs/Meds Orders: Active Orders 24 hr Category Date Time Status Obtain Past Medical Record [OM.PC] Routine Oth 08/10/20 13:15 Active Labs: Laboratory Tests 08/10/20 08/10/20 08/10/20 Range/Units 13:30 13:30 13:30 WBC 8.9 (4.0-10.2) K/uL RBC 4.60 (3.77-5.09) M/uL Hgb 11.2 L (11.7-15.5) g/dL Hct 37.3 (34.0-46.0) % MCV 81.1 L D (84.0-98.0) fL MCH 24.3 L (28.2-33.3) pg MCHC 30.0 L (31.7-36.0) g/dL RDW 15.6 H (11.2-14.1) % Plt Count 320 (150-350) K/uL Neut % (Auto) 58.9 (45.0-80.0) % Lymph % (Auto) 31.7 (10.0-50.0) % Traverse % (Auto) 6.8 (2.0-14.0) % Eos % (Auto) 2.4 (0.0-5.0) % Baso % (Auto) 0.2 (0.0-2.0) % Neut # (Auto) 5.22 (1.40-7.00) K/uL Lymph # (Auto) 2.81 (0.50-3.50) K/uL Traverse # (Auto) 0.60 (0.00-1.00) K/uL Eos # (Auto) 0.21 (0.00-0.50) K/uL Baso # (Auto) 0.02 (0.00-0.20) K/uL PT 10.7 (9.5-12.0) SEC INR 1.1 APTT 26.7 (24.5-32.8) SEC Sodium 141 (136-145) mmol/L Potassium 3.2 L (3.5-5.1) mmol/L Chloride 106 (98-107) mmol/L Carbon Dioxide 28.2 (21.0-32.0) mmol/L BUN 8 (7-18) mg/dL Creatinine 0.96 (0.51-1.17) mg/dL Est Cr Clr Drug Dosing 67.82 mL/min Estimated GFR (MDRD) > 60 mL/min Glucose 88 (74-106) mg/dL Calcium 8.5 (8.5-10.1) mg/dL Total Bilirubin 0.3 (0.2-1.0) mg/dL AST 14 L (15-37) U/L ALT 21 (12-78) U/L Alkaline Phosphatase 73 (46-116) IU/L Total Protein 6.9 (6.4-8.2) g/dL Albumin 3.4 (3.4-5.0) g/dL TSH, Ultra Sensitive (0.358-3.740) mIU/mL 08/10/20 Range/Units 13:30 WBC (4.0-10.2) K/uL RBC (3.77-5.09) M/uL Hgb (11.7-15.5) g/dL Hct (34.0-46.0) % MCV (84.0-98.0) fL MCH (28.2-33.3) pg MCHC (31.7-36.0) g/dL RDW (11.2-14.1) % Plt Count (150-350) K/uL Neut % (Auto) (45.0-80.0) % Lymph % (Auto) (10.0-50.0) % Traverse % (Auto) (2.0-14.0) % Eos % (Auto) (0.0-5.0) % Baso % (Auto) (0.0-2.0) % Neut # (Auto) (1.40-7.00) K/uL Lymph # (Auto) (0.50-3.50) K/uL Traverse # (Auto) (0.00-1.00) K/uL Eos # (Auto) (0.00-0.50) K/uL Baso # (Auto) (0.00-0.20) K/uL PT (9.5-12.0) SEC INR APTT (24.5-32.8) SEC Sodium (136-145) mmol/L Potassium (3.5-5.1) mmol/L Chloride (98-107) mmol/L Carbon Dioxide (21.0-32.0) mmol/L BUN (7-18) mg/dL Creatinine (0.51-1.17) mg/dL Est Cr Clr Drug Dosing mL/min Estimated GFR (MDRD) mL/min Glucose (74-106) mg/dL Calcium (8.5-10.1) mg/dL Total Bilirubin (0.2-1.0) mg/dL AST (15-37) U/L ALT (12-78) U/L Alkaline Phosphatase (46-116) IU/L Total Protein (6.4-8.2) g/dL Albumin (3.4-5.0) g/dL TSH, Ultra Sensitive 2.232 (0.358-3.740) mIU/mL Meds: Medications Discontinued Medications Generic Name Dose Route Start Last Admin Trade Name Freq PRN Reason Stop Dose Admin Medroxyprogesterone Acetate 150 mg 08/10/20 13:40 08/10/20 13:50 Depo-Provera IM 08/10/20 13:41 150 mg ONETIME ONE Administration Potassium Chloride 40 meq 08/10/20 14:44 08/10/20 14:52 Klor-Con M20 PO 08/10/20 14:45 40 meq ONETIME ONE Administration - Radiology Interpretation Free Text/Narrative:: None Departure - Departure Time of Disposition: 15:05 Disposition: Home, Self-Care 01 Condition: Good Clinical Impression: Mixed anxiety depressive disorder, Iron deficiency anemia, Hypertension, Asthma, Dysfunctional uterine bleeding, Hypokalemia - Discharge Information *PRESCRIPTION DRUG MONITORING PROGRAM REVIEWED*: Not Applicable *COPY OF PRESCRIPTION DRUG MONITORING REPORT IN PATIENT TREY: Not Applicable Prescriptions: Potassium Chloride 20 meq PO DAILY #14 tablet.er medroxyPROGESTERone [Provera] 10 mg PO QPM #10 tab Referrals: Ilene Forman PA-C [Primary Care Provider] - Forms: ED Department Discharge Additional Instructions: 1. Follow-up with your regular provider on 08/13/2020 for reevaluation and recommended repeat CBC, INR, PTT, and basic metabolic panel. 2. Discuss with your regular provider at that time our recommendation of immediate referral to a interface control officer for further work-up and/or consideration of a hysterectomy versus endometrial ablation 3. Immediately after this visit verify that your cellular telephone's voicemail has been activated and is empty. Also verify that your home telephone's answering machine is operating properly and has space to receive messages. Note that it is sometimes necessary for us to be able to contact you at a later date to discuss your medical care. 4. Please remember that we are ALWAYS here for you and want to answer any questions you may have. Feel free to call the hospital any time and we call you back DENNY. Sepsis Event Note (ED) - Evaluation Sepsis Screening Result: No Definite Risk - Focused Exam Vital Signs: Vital Signs Temp Pulse Resp BP Pulse Ox 08/10/20 12:32 36.1 C 82 17 125/82 97 - Problem List & Annotations (1) Dysfunctional uterine bleeding SNOMED Code(s): 46649933085178 Code(s): N93.8 - OTHER SPECIFIED ABNORMAL UTERINE AND VAGINAL BLEEDING Status: Acute Priority: High Onset Date: ~08/10/20 Annotation/Comment:: Hypermenorrhea has become nonresponsive to aggressive previous medical therapy as per HPI. No recent negative endometrial biopsy by patient history, although positive pelvic ultrasound for fibroid as above. Various therapeutic options were discussed with the patient, who is in agreement with our current treatment plan. IM Depo-Provera given with change of her hormone therapy to Provera 10 mg p.o. every afternoon x10 days. She will follow-up closely with her regular provider with the LOSS PREVENTION DETECTIVE referral DENNY as per discharge instructions. The patient is leaning toward a hysterectomy rather than an endometrial ablation. Vital signs and clinical exam stable at time of discharge. (2) Hypokalemia SNOMED Code(s): 90466415 Code(s): E87.6 - HYPOKALEMIA Status: Acute Priority: Medium Onset Date: 10/28/19 Annotation/Comment:: Patient denies noncompliance with her previous low-dose potassium chloride supplementation. 40 mEq potassium chloride given in the emergency room with increase of her daily potassium chloride supplementation to 20 mEq for now with caution secondary to her angiotensin II receptor inhibitors. Close follow-up by regular provider as per discharge instructions (3) Hypertension SNOMED Code(s): 26572392 Code(s): I10 - ESSENTIAL (PRIMARY) HYPERTENSION Status: Chronic Priority: Medium Annotation/Comment:: Stable in the emergency room. Qualifiers: Hypertension type: essential hypertension Qualified Code(s): I10 - Essential (primary) hypertension (4) Iron deficiency anemia SNOMED Code(s): 48540943 Code(s): D50.9 - IRON DEFICIENCY ANEMIA, UNSPECIFIED Status: Chronic Priority: Medium Annotation/Comment:: Only mild anemia today especially in light of patient's recent significant hypermenorrhea. Continue to observe closely by her regular provider. Qualifiers: Iron deficiency anemia type: other iron deficiency Qualified Code(s): D50.8 - Other iron deficiency anemias (5) Asthma SNOMED Code(s): 634899957 Code(s): J45.909 - UNSPECIFIED ASTHMA, UNCOMPLICATED Status: Chronic Priority: Medium Annotation/Comment:: No recent fever or bronchitic type symptoms. Qualifiers: Asthma severity: mild Asthma persistence: intermittent Asthma c omplication type: uncomplicated Qualified Code(s): J45.20 - Mild intermittent asthma, uncomplicated (6) Mixed anxiety depressive disorder SNOMED Code(s): 656202562 Code(s): F41.8 - OTHER SPECIFIED ANXIETY DISORDERS Status: Chronic Priority: Medium Annotation/Comment:: Stable by patient history. Continue to observe closely by regular provider. (7) Peptic reflux disease SNOMED Code(s): 180874651 Code(s): K21.9 - GASTRO-ESOPHAGEAL REFLUX DISEASE WITHOUT ESOPHAGITIS Status: Chronic Priority: Medium Annotation/Comment:: Stable by patient history continue current medical therapy. With continued close observation by her regular provider. Note recent EGD. - Problem List Review Problem List Initiated/Reviewed/Updated: Yes - My Orders Last 24 Hours: My Active Orders 08/10/20 13:15 Obtain Past Medical Record [OM.PC] Routine - Assessment/Plan Last 24 Hours: My Active Orders 08/10/20 13:15 Obtain Past Medical Record [OM.PC] Routine Assessment:: As above Plan: As above. Extensive precautions were given to the patient, who is in agreement with the treatment plan. See Patient Instructions for further treatment and plan.
[2020-08-10] MEDS ORDERED: medroxyPROGESTERone 150 MG/ML SDV IM ONE (13:40)
[2020-08-10 14:12] LABS: CHLORIDE,CL 106 mmol/L (98-107); SODIUM,NA 141 mmol/L (136-145)
[2020-08-10 14:39] LABS: PTT,PARTIAL THROMBOPLSTIN TIME 26.7 SEC (24.5-32.8)
[2020-08-10] MEDS ORDERED: Potassium Chloride 20 MEQ Tab.ER PO ONE (14:44)
== END 2020-08-10 15:05 | disposition home or self-care (01) ==
LOC: LL.ED 12:25
DX: N93.8 Other specified abnormal uterine and vaginal bleeding (principal); F41.8 Other specified anxiety disorders; I10 Essential (primary) hypertension; J45.909 Unspecified asthma, uncomplicated; D50.9 Iron deficiency anemia, unspecified; E87.6 Hypokalemia; K21.9 Gastro-esophageal reflux disease without esophagitis; E03.9 Hypothyroidism, unspecified; E66.9 Obesity, unspecified; Z68.38 Body mass index [BMI] 38.0-38.9, adult; Z86.718 Personal history of other venous thrombosis and embolism; Z86.711 Personal history of pulmonary embolism; Z87.891 Personal history of nicotine dependence; Z98.890 Other specified postprocedural states; Z88.0 Allergy status to penicillin; Z79.01 Long term (current) use of anticoagulants; Z79.899 Other long term (current) drug therapy
CPT/HCPCS: 36415; 80053; 84443; 85025; 85610; 85730; 96372; 99284; A9270; J1050

== ENCOUNTER 2021-12-24 22:44 | Emergency (ER) | payer MEDICARE, MEDICAID ==
[2021-12-24] MEDS: Furosemide 40 MG Tab PO ONE (23:30)
[2021-12-24 23:50] LABS: CHLORIDE,CL 104 mmol/L (98-107); SODIUM,NA 140 mmol/L (136-145)
[2021-12-24 23:52] LABS: ANION GAP 12.2 meq/L (7-15)
[2021-12-25] MEDS: Potassium Bicarbonate/Cit Ac 20 MEQ Effervescent Tab PO ONE (00:29)
[2021-12-25 02:56] VITALS: BP 154/95; PULSE 96
== END 2021-12-25 00:40 | disposition home or self-care (01) ==
LOC: LL.ED 22:44
DX: R06.02 Shortness of breath (principal); E87.6 Hypokalemia; E78.00 Pure hypercholesterolemia, unspecified; I10 Essential (primary) hypertension; K21.9 Gastro-esophageal reflux disease without esophagitis; Z88.0 Allergy status to penicillin; Z88.8 Allergy status to other drugs, medicaments and biological substances; Z79.899 Other long term (current) drug therapy; Z79.01 Long term (current) use of anticoagulants; Z91.09 Other allergy status, other than to drugs and biological substances
CPT/HCPCS: 36415; 71046; 80053; 83880; 84484; 85025; 87426; 93005; 99285-25; A9270-GY

== ENCOUNTER 2022-12-06 19:53 | Emergency (ER) | payer MEDICARE, MEDICAID | END 2022-12-06 21:35 | disposition home or self-care (01) | LOC: LL.ED 19:53 | DX: F41.9 Anxiety disorder, unspecified (principal); L25.9 Unspecified contact dermatitis, unspecified cause; I10 Essential (primary) hypertension; E66.9 Obesity, unspecified; Z68.42 Body mass index [BMI] 45.0-49.9, adult; Z88.0 Allergy status to penicillin; Z88.8 Allergy status to other drugs, medicaments and biological substances; Z79.899 Other long term (current) drug therapy; Z79.01 Long term (current) use of anticoagulants; Z86.16 Personal history of COVID-19 | CPT/HCPCS: 99284 ==